=== PATIENT | female | born 1930 | race Hispanic/Latino ===

== ENCOUNTER 2016-12-04 14:45 | Emergency (ER) | payer MEDICARE ==
--- NOTE | 2016-12-04 16:19 | RAD ---
RIGHT SHOULDER THREE VIEWS: 12/04/16 HISTORY: Right shoulder pain, fall. FINDINGS/IMPRESSION: Degenerative changes are present in the acromioclavicular joint. No evidence of fracture or dislocat ion is identified. POS: [facility]
--- NOTE | 2016-12-04 16:20 | RAD ---
RIGHT HIP TWO VIEWS: 12/04/16 HISTORY: Injury, right hip pain. FINDINGS/IMPRESSION: Degenerative changes are present in the right hip joint. No fracture or dislocation is identified. POS: [facility]
[2016-12-04] MEDS ORDERED: Ketorolac Tromethamine 30 MG/ML VIAL ONE (16:38)
== END 2016-12-04 17:01 | disposition home or self-care (01) ==
LOC: ERS 14:45
DX: S40.011A Contusion of right shoulder, initial encounter (principal); S70.01XA Contusion of right hip, initial encounter; I10 Essential (primary) hypertension; W18.30XA Fall on same level, unspecified, initial encounter
CPT/HCPCS: 96372; J1885

== ENCOUNTER 2017-10-02 21:14 | Emergency (ER) | payer MEDICARE, MEDICAID ==
[2017-10-02] MEDS ORDERED: Lorazepam 1 MG TAB ONE (21:46)
== END 2017-10-02 21:51 | disposition home or self-care (01) ==
LOC: ERS 21:14
DX: F41.9 Anxiety disorder, unspecified (principal); Z76.0 Encounter for issue of repeat prescription; I10 Essential (primary) hypertension
CPT/HCPCS: 99283

== ENCOUNTER 2018-05-21 16:03 | Inpatient (IN) | payer MEDICARE, MEDICAID ==
[~2018-05-21 16:03] MED LIST: ISOVUE-370 76%-LOCM 1 ML ONE
[2018-05-21] MEDS ORDERED: Nitroglycerin 2% Ointment 1 INCH/1 GM Packet ONE (16:32)
[2018-05-21] MEDS ORDERED: Furosemide 40 MG/4 ML VIAL ONE (16:32)
[2018-05-21] MEDS ORDERED: Aspirin Chewable 81 MG TAB ONE (16:32)
[2018-05-21 16:34] LABS: #Eosinphils 0.2 thou/uL (0.0-0.7); #Monocytes 0.5 thou/uL (0.11-0.59); #Neutrophils 4.3 thou/uL (1.40-6.50); %Basophils 0.3 % (0.0-1.0); %Eosinophils 3.7 % (0.0-10.0); %Lymphocytes 16.9 % (21.0-51.0); %Monocytes 7.9 % (0.0-10.0); %Neutrophils 71.2 % (42.0-75.0); Hemoglobin 13.8 g/dL (12.0-16.0); Mean Corpuscular Hemoglobin 29.3 pg (27.0-31.0); Mean Corpuscular Volume 88.9 fL (78.0-98.0); Mean Platelet Volume 9.2 fL (7.4-10.4); Platelet Count 167 thou/uL (130-400); Red Blood Cell (RBC) Count 4.72 mill/uL (4.20-5.40)
[2018-05-21 16:50] LABS: ALT (SGPT) 23 U/L (8-55); AST (SGOT) 22 U/L (5-34); Albumin 4.2 g/dL (3.4-4.8); Alkaline Phosphatase 120 U/L (40-150); Anion Gap 12 mmol/L (10-20); BUN (Urea Nitrogen) 12 mg/dL (9.8-20.1); Bilirubin, Total 0.8 mg/dL (0.2-1.2); CK (CPK) 46 U/L (29-168); Calc. Creatinine Clearance 0 mL/min (70-130); Calcium 9.2 mg/dL (7.8-10.44); Carbon Dioxide 25 mmol/L (23-31); Chloride 96 mmol/L (98-107); Estimated GFR-MDRD 68; Globulin 3.2 g/dL (2.4-3.5); Glucose 98 mg/dL (83-110); Lipase 51 U/L (8-78); Potassium 3.9 mmol/L (3.5-5.1); Protein, Total 7.4 g/dL (6.0-8.3); Sodium 129 mmol/L (136-145)
--- NOTE | 2018-05-21 16:53 | RAD ---
PORTABLE UPRIGHT FRONTAL CHEST RADIOGRAPH: 05/21/2018 HISTORY: Cough. Shortness of breath. COMPARISON: Prior study also done on 05/21/2018. FINDINGS: The cardiac silhouette appears enlarged, suggesting cardiomegaly and/or magnification. There is athe rosclerotic calcification of the aortic arch and mild pulmonary vascular congestion. No focal consol idation or alveolar edema. IMPRESSION: No significant interval change. POS: [facility]
--- NOTE | 2018-05-21 17:52 | CT ---
CT ANGIOGRAM CHEST: 05/21/2018 HISTORY: Wheezing. Elevated D-dimer. Assess for pulmonary artery embolism. COMPARISON: None. TECHNIQUE: Axial CT imaging at 2.5 mm intervals through the chest with IV contrast, using CT angiogram protocol. Coronal and oblique sagittal 3D reformatted imaging obtained. FINDINGS: The thyroid gland appears heterogeneous and enlarged, particularly the right lobe. No axillary lymph adenopathy is seen. No significant hilar or mediastinal adenopathy noted. The partially visualized left kidney is markedly atrophic. There is contrast media refluxing into th e intrahepatic IVC and hepatic veins, evidence of suboptimal cardiac output. 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 There is s mall volume right pleural effusion. No significant pericardial, mediastinal, or left pleural fluid. There is no pulmonary arterial filling defect noted on either side. No evidence for pulmonary arteri al embolism. There is a small hiatal hernia. The heart is enlarged. There is calcification of the coronary arteries and at the level of the giorgio l annulus. There is no pneumothorax on either side. Evaluation of the lung parenchyma is slightly limited, on t he basis of respiratory motion artifact. Nonspecific, noncalcified posterior left upper lobe pulmona ry nodule on image 46 measures 8 mm. Review of the osseous structures demonstrates multilevel disk space narrowing, degenerative endplate change, and vacuum disk formation within the thoracic spine. IMPRESSION: 1. No evidence for pulmonary artery embolism. 2. Cardiomegaly with reflux of contrast media into the hepatic veins and inferior vena cava. 3. Pulmonary nodule, measuring 8 mm, within the left upper lobe, for which a follow-up CT examinatio n of the chest is advised, in six months. 4. Small right pleural effusion. POS: [facility]
[2018-05-21] MEDS ORDERED: Ondansetron ODT 4 MG TAB SL PRN (19:02)
[2018-05-21] MEDS ORDERED: Ondansetron PF 4 MG/2 ML Vial IVP PRN (19:02)
[2018-05-21 19:20] VITALS: BMI 34.6
--- NOTE | 2018-05-21 19:41 | HP ---
PRIMARY CARE PROVIDER: Dr. Jiménez. CHIEF COMPLAINT: Feeling weak. HISTORY OF PRESENT ILLNESS: Ms. Jurado is an 87-year-old female with history of hypertension, dyslipidemia, chronic hyponatremia, anxiety, who presents to the emergency room with a complaint of weakness. The majority of the history is obtained from her daughter. The patient generally has an attendant with her during the day and at night, who called her daughter today due to concern on the patient's breathing. The patient reports that she has been taking some cough medicines, but did not notice a change in her breathing, states that she has had a stuffy nose today. She has noted that she feels tired more often. She is unable to quantify when it started or how severe it is. She denies any cough, fevers, chills, nausea, vomiting, ear problems, or difficulty with sleeping flat at night. Because of the wheezing that her daughter could hear, the [facility] was [facility], where a chest x-ray was performed and the patient was sent to the emergency room. Her daughter reports the patient is generally active and does errands/grocery shopping/eating out on a regular basis with her sister. For the past few weeks the patient has declined and instead preferred to stay and home and eat at home. No precipitating or relieving factors. No prior history of similar symptoms. The patient states that she is generally well. In the emergency room, the patient's presentation concerning for new onset heart failure, possible atrial fibrillation, and hospitalist called for admission. The patient received 40 mg of IV furosemide, 1 inch of nitroglycerin paste. ALLERGIES: NO KNOWN ALLERGIES TO MEDICATION. CURRENT MEDICATIONS: Reconciled with the ER list - patient's daughter reports she reviewed this with the ER provider. 1. Metoprolol succinate 100 mg once a day. 2. Losartan 100 mg once a day. 3. Amlodipine 10 mg once a day. 4. Simvastatin 20 mg once a day. 5. Lorazepam 1 mg b.i.d. p.r.n. feeling nervous. The patient reports she takes it once or twice a day. PAST MEDICAL HISTORY: 1. Dyslipidemia. 2. Chronic hyponatremia by chart review. 3. Hypertension. 4. Anxiety. PAST SURGICAL HISTORY: 1. Cholecystectomy. 2. Hysterectomy. SOCIAL HISTORY: She lives alone and has an attendant for nighttime and sometimes during the day. She has 6 children. She denies any alcohol or tobacco. Her 2 years ago. Her surrogate decision makers are her daughter , Anabell, phone #[phone] or her son, Ran. The patient desires full code. FAMILY HISTORY: She denies any inherited disorders. REVIEW OF SYSTEMS: As noted above. Negative for cough, fevers, chills, nausea, vomiting, abdominal pain, diarrhea, or skin changes. All remaining review of systems are reviewed and negative. PHYSICAL EXAMINATION: VITAL SIGNS: Blood pressure 165/78, pulse 66 with a range of 65 to 76 here, respirations 16, sats 98% on room air. GENERAL: Awake, alert, responsive, in no apparent distress. Able to speak in regular sentences. HEENT: Her right external auditory canal occluded with cerumen. Left is clear with a normal TM. Oral mucosa is pink and moist. NECK: Supple, nontender. LYMPHATICS: No palpable cervical or supraclavicular lymphadenopathy. LUNGS: Some faint rales at the left base. No audible wheezing or rhonchi. HEART: Normal S1, S2. Regular rate and rhythm. No audible murmurs. ABDOMEN: Soft. Present bowel sounds. Nontender, nondistended. EXTREMITIES: Present 1 to 2+ pitting edema bilateral with hyperpigmentation of her lower extremities in the areas of edema. VASCULAR: 2+ dorsalis pedis pulses. SKIN: Only hyperpigmentation of her lower extremities distal to the knee. No visible rashes. NEUROLOGIC: No focal deficits. PSYCHIATRIC: Euthymic. Linear, logical, goal directed thought process. LABORATORY DATA: Labs reviewed today. CBC; 6.0, 13.8, 41.9, 167. Coags; D-dimer 1.62. Chemistry; 129, 3.9, 96, 25, 12, 0.8, 98. LFTs negative. BNP 410. Troponin negative x1. TSH 4.24. Chest x-rays personally reviewed. Cardiomegaly, mild pulmonary vascular congestion. No focal consolidation or alveolar edema. CT angiogram shows no evidence for PE, cardiomegaly with reflux of contrast into the hepatic veins and inferior vena cava, pulmonary nodule measuring [address] recommended in 6 months and small right pleural effusion. EKG; personally reviewed. Normal axis, normal intervals, atrial fibrillation with a rate of 59. IMPRESSION: 1. New onset heart failure in a patient with known hypertension. 2. Atrial fibrillation with slow ventricular response in a patient on chronic beta-renetta therapy. 3. Hypertension, unknown control. 4. Dyslipidemia. 5. Anxiety. 6. Pulmonary nodule, which needs follow up in 6 months. 7. Chronic hyponatremia based on chart review over the past few years. 8. Chronic lower extremity edema. PLAN: 1. Admission to the hospital. 2. Hold further diuresis today as the patient is no longer symptomatic. We will order a smaller dose for tomorrow. Telemetry monitoring. Start aspirin. Continue statin. Continue the beta-renetta at her current dose with hold parameters. 3. We will continue her losartan and amlodipine. Consult Cardiology and order echocardiogram. 4. Continue p.r.n. lorazepam per her home dosing. 5. Oxygen supplementation if needed. 6. Monitor her sodium levels and fluid restriction for both new onset heart failure as well as chronic hyponatremia. 7. Further recommendations will be based on clinical course. 8. DVT prophylaxis with pneumatic compression devices. 9. GI prophylaxis not indicated. 10. Code status is full. Surrogate decision makers are her daughter and son as noted above. 11. I reviewed the plan of care with the patient and her daughter, who demonstrate understanding. No questions or further needs at the end of evaluation. 12. The patient is at high risk given age, comorbidities, and current presentation. Job ID: [id number] MTDD
[2018-05-21 20:44] LABS: Troponin I Less than 0.010 ng/mL (< 0.028)
[2018-05-21] MEDS: Simvastatin 20 MG TAB PO SCH (21:46)
[2018-05-21] MEDS: Acetaminophen 325 MG TAB PO PRN (21:48)
[2018-05-21 22:00] LABS: Troponin I Less than 0.010 ng/mL (< 0.028)
[2018-05-21] MEDS ORDERED: Nitroglycerin 2% Ointment 1 INCH/1 GM Packet TOP SCH (23:59)
[2018-05-22 04:53] LABS: Bilirubin Negative (Negative); Blood, Urine Negative (Negative); Clarity CLEAR (Clear); Glucose, Urine (Dipstick) Negative (Negative); Leukocyte Small (Negative); Nitrite Negative (Negative); Protein, Urine (Dipstick) Negative (Neg-Trace); Specific Gravity, Urine 1.013 (1.002-1.036)
[2018-05-22 04:58] LABS: Bacteria/HPF 1+ HPF (None Seen); Hyaline Casts/LPF 0-3 HYALINE CAST LPF (0-3 Hyaline); RBC/HPF 0-3 HPF (0-3); Squamous Epithelial None Seen HPF (0-3)
[2018-05-22 06:42] LABS: #Basophils 0.1 thou/uL (0.0-0.2); #Eosinphils 0.2 thou/uL (0.0-0.7); #Lymphocytes 1.2 thou/uL (1.20-3.40); #Monocytes 0.5 thou/uL (0.11-0.59); #Neutrophils 3.7 thou/uL (1.40-6.50); %Basophils 0.9 % (0.0-1.0); %Eosinophils 4.1 % (0.0-10.0); %Lymphocytes 20.2 % (21.0-51.0); %Monocytes 9.4 % (0.0-10.0); %Neutrophils 65.5 % (42.0-75.0); Hemoglobin 13.6 g/dL (12.0-16.0); Mean Corpuscular HGB CONC 32.5 g/dL (32.0-36.0); Mean Corpuscular Hemoglobin 28.6 pg (27.0-31.0); Mean Platelet Volume 9.1 fL (7.4-10.4); Platelet Count 183 thou/uL (130-400); RBC Distribution Width 12.1 % (11.5-14.5); Red Blood Cell (RBC) Count 4.75 mill/uL (4.20-5.40); White Blood Cell (WBC) Count 5.7 thou/uL (4.8-10.8)
[2018-05-22 06:56] LABS: Anion Gap 16 mmol/L (10-20); BUN (Urea Nitrogen) 13 mg/dL (9.8-20.1); Calc. Creatinine Clearance 63 mL/min (70-130); Calcium 9.4 mg/dL (7.8-10.44); Carbon Dioxide 22 mmol/L (23-31); Chloride 99 mmol/L (98-107); Estimated GFR-MDRD 65; Glucose 100 mg/dL (83-110); Potassium 3.6 mmol/L (3.5-5.1); Sodium 133 mmol/L (136-145)
[2018-05-22] MEDS: Aspirin 325 mg Enteric Coated Tablet PO SCH (08:12)
[2018-05-22] MEDS: Losartan 25 MG TAB PO SCH (08:12)
[2018-05-22] MEDS: Amlodipine 10 MG TAB PO SCH (08:12)
[2018-05-22] MEDS: Furosemide 20 MG/2 ML VIAL SLOW IVP SCH (08:13)
[2018-05-22] MEDS: Lorazepam 1 MG TAB PO PRN ×2 (08:22→21:25)
--- NOTE | 2018-05-22 09:05 | PDOC.PN ---
- Subjective Encounter Start Date: 05/22/18 Encounter Start Time: 11:10 Subjective: Patient with improved SOB. No wheezing. Less coughing. - Objective Resuscitation Status - Order Detail: 05/21/18 18:37 Resuscitation Status Routine Resuscitation Status: FULL: Full Resuscitation MAR Reviewed: Yes Vital Signs & Weight: Vital Signs (12 hours) Temp Pulse Resp BP BP Pulse Ox 05/22/18 08:12 71 173/78 H 05/22/18 08:00 98.2 F 71 18 173/78 H 94 L 05/22/18 04:25 97.9 F 68 18 163/83 H 95 Weight Weight 176 lb 9.6 oz I&O: 05/21/18 05/22/18 05/23/18 06:59 06:59 06:59 Intake Total 500 Output Total 1850 Balance -1350 Result Diagrams: 05/22/18 06:10 05/22/18 06:10 Phys Exam - Physical Examination Constitutional: NAD HEENT: moist MMs Respiratory: no wheezing, no rales, no rhonchi Cardiovascular: RRR, no significant murmur Gastrointestinal: soft, positive bowel sounds 1+ bilateral edema to shins Neurological: non-focal, moves all 4 limbs Psychiatric: normal affect, A&O x 3 Dx/Plan (1) Acute congestive heart failure Code(s): I50.9 - HEART FAILURE, UNSPECIFIED Status: Acute Qualifiers: Heart failure type: unspecified Qualified Code(s): I50.9 - Heart failure, unspecified Comment: ECHO, cardiology consult pending, on low dose diuretic and symptoms improved (2) Atrial fibrillation Code(s): I48.91 - UNSPECIFIED ATRIAL FIBRILLATION Status: Acute Comment: rate controlled on betablocker, new onset (3) Hypertension Code(s): I10 - ESSENTIAL (PRIMARY) HYPERTENSION Status: Chronic (4) Dyslipidemia Code(s): E78.5 - HYPERLIPIDEMIA, UNSPECIFIED Status: Chronic (5) Hyponatremia Code(s): E87.1 - HYPO-OSMOLALITY AND HYPONATREMIA Status: Chronic Comment: mild, chronic, stable (6) Lung nodule Code(s): R91.1 - SOLITARY PULMONARY NODULE Status: Acute Comment: left upper lobe, 8mm, needs f/u CT in 6 months (7) Anxiety Code(s): F41.9 - ANXIETY DISORDER, UNSPECIFIED Status: Chronic - Plan cont current plan of care, PT/OT, DVT proph w/lovenox, DVT proph w/SCDs * . - Discharge Encounter end time: 11:20
--- NOTE | 2018-05-22 18:57 | CON ---
DATE OF CONSULTATION: 05/22/2018 REASON FOR CONSULTATION: Heart failure. HISTORY OF PRESENT ILLNESS: Ms. Jurado is a very pleasant 87-year-old female, who comes to the hospital for feeling weak. She was brought in for a few weeks worth of not feeling that well, noted that her breathing was started to become an issue as well, so she was brought in and admitted after being evaluated and found to be in a little bit of heart failure. She was started on IV Lasix and Cardiology is being consulted for this. On my evaluation, Ms. Jurado looks much better. Her breathing pattern is significantly improved after some Lasix has already been given and she has diuresed a lot. She denies any chest pain, tightness, or pressure. Denies any palpitations, syncope, or presyncope. PAST MEDICAL HISTORY: 1. Hyperlipidemia. 2. Chronic hyponatremia. 3. Hypertension. 4. Anxiety. PAST SURGICAL HISTORY: 1. Cholecystectomy. 2. Hysterectomy. MEDICATIONS: Outpatient medications include. 1. Metoprolol succinate 100 mg a day. 2. Losartan 100 mg a day. 3. Amlodipine 10 mg a day. 4. Simvastatin 20 mg nightly. 5. Lorazepam p.r.n. ALLERGIES: NO KNOWN DRUG ALLERGIES. FAMILY HISTORY: Noncontributory. SOCIAL HISTORY: No alcohol, tobacco, or drugs. Has 6 kids. Lives alone and has an attendant with her at all times. REVIEW OF SYSTEMS: A 12-point review of systems was done and was found to be negative unless stated in the history of present illness except she fell down about 6 months ago, hit her head. PHYSICAL EXAMINATION: VITAL SIGNS: Temperature 98.9, pulse 64, respiratory rate 18, saturating 94% on room air, and blood pressure 148/73. GENERAL: Awake, alert, and oriented x3, in no distress. HEENT: Normocephalic and atraumatic. NECK: Supple. LUNGS: Mild crackles at the bases. CARDIOVASCULAR: Irregularly irregular heart rate in the 60s, grade 2/6 systolic murmur in the upper sternal border. ABDOMEN: Soft. Positive bowel sounds. EXTREMITIES: No edema. SKIN: Warm and dry. LABORATORY DATA: Laboratory work was reviewed. CBC is normal. Coags, D-dimer was a little bit high. Chemistry was unremarkable except for a sodium of 133. Troponin is negative x3. BNP is 410. UA with small leukocyte esterase, 11-20 white cells, 1+ bacteria. CT of the thorax was reviewed. She has no evidence of pulmonary embolism. There are findings suggestive of right-sided failure with pulmonary nodule, measuring 8 mm, in the left upper lobe, cardiomegaly, and a small right pleural effusion. EKG was reviewed. Echocardiogram was reviewed, which shows LV function at 50% to 55%. She was in AFib during this study and right ventricle and right atrium are severely dilated, suggestive of right-sided failure. RVSP was only at 35 by the time the echo was done. ASSESSMENT AND PLAN: 1. Acute on chronic diastolic heart failure. 2. Acute right ventricular heart failure. 3. New onset atrial fibrillation, rate controlled. 4. CHADS-VASc score of 4 for a female age above 75, that gives 2 points. 5. High blood pressure. PLAN: 1. Long conversation with the family about stroke prophylaxis with blood thinners. They are very concerned that she is at fall risk. She has fallen a few times and hitting her head really hard. Daughter tells me that at this point she thinks she is high risk for falls and she would prefer her to be on an aspirin alone. She will talk with her siblings and let me know what decision they have come to, as far as in my experiences, her falls may be significant enough at this time to just do aspirin alone for stroke prophylaxis. While she is in the hospital, we will give her subcu Lovenox as this is quickly reversible and depending on what the family decides and further conversations with them, we will decide on aspirin alone versus full anticoagulation. Currently, most likely will be aspirin alone. 2. Continue rate control with a high dose beta-renetta for now. 3. Family and patient not interested in defibrillator shocks as well as having severely dilated atria, both right and left-sided are very dilated, which would make it unlikely that she would remain in sinus rhythm if she were to be shocked. 4. Right-sided failure, may be related to atrial fibrillation. No pulmonary embolism seen on CT. Continue diuresis. Thank you for letting us to participate in the care of your patient. We will follow. Job ID: [id number]
[2018-05-22] MEDS ORDERED: Bisacodyl 10 MG SUPP PR PRN (19:59)
[2018-05-22] MEDS: Senokot S 8.6-50 MG TAB PO PRN (20:27)
[2018-05-22] MEDS: Simvastatin 20 MG TAB PO SCH (20:29)
[2018-05-22] MEDS: Enoxaparin Sodium 80 MG/0.8 ML SYRINGE SC SCH (20:30)
[2018-05-23] MEDS ORDERED: Enoxaparin Sodium 40 MG/0.4 ML SYRINGE SC SCH (09:00)
[2018-05-23] MEDS: Losartan 25 MG TAB PO SCH (09:19)
[2018-05-23] MEDS: Furosemide 20 MG/2 ML VIAL SLOW IVP SCH (09:20)
[2018-05-23] MEDS: Amlodipine 10 MG TAB PO SCH (09:20)
[2018-05-23] MEDS: Enoxaparin Sodium 80 MG/0.8 ML SYRINGE SC SCH ×2 (09:20→20:59)
[2018-05-23] MEDS: Aspirin 325 mg Enteric Coated Tablet PO SCH (09:20)
--- NOTE | 2018-05-23 09:46 | PDOC.PN ---
- Subjective Encounter Start Date: 05/23/18 Encounter Start Time: 11:30 Subjective: Patient reports some improvement in shortness of breath and cough. Still -: with some cough productive of white sputum. - Objective Resuscitation Status - Order Detail: 05/21/18 18:37 Resuscitation Status Routine Resuscitation Status: FULL: Full Resuscitation MAR Reviewed: Yes Vital Signs & Weight: Vital Signs (12 hours) Temp Pulse Resp BP Pulse Ox 05/23/18 09:20 72 05/23/18 08:00 98.5 F 72 16 179/82 H 98 05/23/18 04:00 98 F 61 14 162/79 H 95 Weight Weight 170 lb 1.6 oz I&O: 05/22/18 05/23/18 05/24/18 06:59 06:59 06:59 Intake Total 500 960 Output Total 1850 1000 Balance -1350 -40 Result Diagrams: 05/22/18 06:10 05/22/18 06:10 Phys Exam - Physical Examination Constitutional: NAD HEENT: moist MMs Respiratory: no rales, no rhonchi occ wheeze Cardiovascular: no significant murmur, irregular Gastrointestinal: soft, positive bowel sounds trace pretibial edema Neurological: non-focal Psychiatric: normal affect, A&O x 3 Dx/Plan (1) Acute congestive heart failure Code(s): I50.9 - HEART FAILURE, UNSPECIFIED Status: Acute Qualifiers: Heart failure type: diastolic Qualified Code(s): I50.31 - Acute diastolic ( congestive) heart failure Comment: ECHO EF 50-55%, right sided heart failure, on low dose diuretic and symptoms improved (2) Atrial fibrillation Code(s): I48.91 - UNSPECIFIED ATRIAL FIBRILLATION Status: Acute Comment: rate controlled on betablocker, new onset, plan for Aspirin only due to falls (3) Hypertension Code(s): I10 - ESSENTIAL (PRIMARY) HYPERTENSION Status: Chronic (4) Dyslipidemia Code(s): E78.5 - HYPERLIPIDEMIA, UNSPECIFIED Status: Chronic (5) Hyponatremia Code(s): E87.1 - HYPO-OSMOLALITY AND HYPONATREMIA Status: Chronic Comment: mild, chronic, stable (6) Lung nodule Code(s): R91.1 - SOLITARY PULMONARY NODULE Status: Acute Comment: left upper lobe, 8mm, needs f/u CT in 6 months (7) Anxiety Code(s): F41.9 - ANXIETY DISORDER, UNSPECIFIED Status: Chronic - Plan cont current plan of care, PT/OT, DVT proph w/lovenox, DVT proph w/SCDs Appreciate Dr. Sinha's imput on this case. * . - Discharge Day Encounter end time: 11:40
[2018-05-23] MEDS: Furosemide 40 MG/4 ML VIAL SLOW IVP SCH (14:23)
[2018-05-23] MEDS: Acetaminophen 325 MG TAB PO PRN ×2 (14:34→23:21)
[2018-05-23] MEDS: Lorazepam 1 MG TAB PO PRN (18:39)
--- NOTE | 2018-05-23 19:38 | PDOC.CTH ---
Cardiology Progress Note - Subjective She is doing much better. Has diuresed better with 40 IV lasix. She feels back to normal. - Objective Vital Signs Temp Pulse Pulse Pulse Resp BP BP 05/23/18 16:00 99.0 F 56 L 16 05/23/18 12:00 98.6 F 70 18 05/23/18 10:29 79 81 171/81 H 177/81 H 05/23/18 09:20 72 05/23/18 08:00 98.5 F 72 16 BP BP BP Pulse Ox Pulse Ox Pulse Ox 05/23/18 16:00 130/68 94 L 05/23/18 12:00 141/70 H 94 L 05/23/18 10:29 98 98 05/23/18 09:20 05/23/18 08:00 179/82 H 98 Weight 170 lb 1.6 oz 05/22/18 05/23/18 05/24/18 06:59 06:59 06:59 Intake Total 500 960 240 Output Total 1850 1000 Balance -1350 -40 240 - Physical Examination General/Neuro: alert & oriented x3, NAD Neck: no JVD present Lungs: CTA, unlabored respirations Heart: RRR Abdomen: NT/ND Extremities: + edema B (1+) - Telemetry Telemetry Rhythm: Afib HR 60's. - Labs Result Diagrams: 05/22/18 06:10 05/22/18 06:10 Troponin/CKMB Troponin I Less than 0.010 ng/mL (< 0.028) 05/21/18 21:17 - Assessment/Plan 1. New onset afob, rate controlled. 2. Bi atrial enlargement. 3. Acute on chronic diastolic heart failure. 4. CHADS VASc score of 4 5. High fall risk PLAN: - Family is concerned about her fall risk. Aspirin for stroke prophylaxis preferred. - Continue IV Lasix today and tomorrow. - Likely home in next 24 to 48 hrs. - Continue rate control only with current dose of BB.
[2018-05-23] MEDS: Simvastatin 20 MG TAB PO SCH (20:59)
[2018-05-24 05:43] LABS: #Eosinphils 0.2 thou/uL (0.0-0.7); #Lymphocytes 1.9 thou/uL (1.20-3.40); #Monocytes 0.6 thou/uL (0.11-0.59); #Neutrophils 3.3 thou/uL (1.40-6.50); %Basophils 0.7 % (0.0-1.0); %Eosinophils 3.3 % (0.0-10.0); %Lymphocytes 31.1 % (21.0-51.0); %Monocytes 9.7 % (0.0-10.0); %Neutrophils 55.2 % (42.0-75.0); Hemoglobin 14.6 g/dL (12.0-16.0); Mean Corpuscular HGB CONC 32.7 g/dL (32.0-36.0); Mean Corpuscular Hemoglobin 28.8 pg (27.0-31.0); Mean Corpuscular Volume 88.1 fL (78.0-98.0); Mean Platelet Volume 8.6 fL (7.4-10.4); Platelet Count 197 thou/uL (130-400); RBC Distribution Width 11.9 % (11.5-14.5); Red Blood Cell (RBC) Count 5.07 mill/uL (4.20-5.40)
[2018-05-24 06:01] LABS: Anion Gap 13 mmol/L (10-20); BUN (Urea Nitrogen) 16 mg/dL (9.8-20.1); Calc. Creatinine Clearance 53 mL/min (70-130); Calcium 9.3 mg/dL (7.8-10.44); Carbon Dioxide 28 mmol/L (23-31); Chloride 97 mmol/L (98-107); Estimated GFR-MDRD 57; Glucose 95 mg/dL (83-110); Potassium 3.1 mmol/L (3.5-5.1); Sodium 135 mmol/L (136-145)
[2018-05-24] MEDS: Furosemide 40 MG/4 ML VIAL SLOW IVP SCH ×2 (06:05→13:43)
--- NOTE | 2018-05-24 09:18 | PDOC.PN ---
- Subjective Encounter Start Date: 05/24/18 Encounter Start Time: 11:20 Subjective: Patient feeling much better. Had some hard stool today and felt constipated -: this AM, got laxative but no BM yet. - Objective Resuscitation Status - Order Detail: 05/21/18 18:37 Resuscitation Status Routine Resuscitation Status: FULL: Full Resuscitation MAR Reviewed: Yes Vital Signs & Weight: Vital Signs (12 hours) Temp Pulse Resp BP BP Pulse Ox 05/24/18 07:12 97.5 F L 74 16 162/81 H 100 05/24/18 04:00 98.1 F 65 16 135/72 94 L Weight Weight 175 lb 12.8 oz I&O: 05/23/18 05/24/18 05/25/18 06:59 06:59 06:59 Intake Total 960 240 100 Output Total 1000 300 Balance -40 240 -200 Result Diagrams: 05/24/18 05:17 05/24/18 05:17 Phys Exam - Physical Examination Constitutional: NAD HEENT: moist MMs Respiratory: no wheezing, no rales, no rhonchi Cardiovascular: RRR, no significant murmur Gastrointestinal: soft, non-tender, positive bowel sounds Musculoskeletal: no edema Neurological: non-focal, moves all 4 limbs Psychiatric: normal affect, A&O x 3 Dx/Plan (1) Acute congestive heart failure Code(s): I50.9 - HEART FAILURE, UNSPECIFIED Status: Acute Qualifiers: Heart failure type: diastolic Qualified Code(s): I50.31 - Acute diastolic ( congestive) heart failure Comment: ECHO EF 50-55%, right sided heart failure, on low dose diuretic and symptoms improved (2) Atrial fibrillation Code(s): I48.91 - UNSPECIFIED ATRIAL FIBRILLATION Status: Acute Comment: rate controlled on betablocker, new onset, plan for Aspirin only due to falls (3) Hypertension Code(s): I10 - ESSENTIAL (PRIMARY) HYPERTENSION Status: Chronic (4) Dyslipidemia Code(s): E78.5 - HYPERLIPIDEMIA, UNSPECIFIED Status: Chronic (5) Hyponatremia Code(s): E87.1 - HYPO-OSMOLALITY AND HYPONATREMIA Status: Chronic Comment: mild, chronic, stable (6) Lung nodule Code(s): R91.1 - SOLITARY PULMONARY NODULE Status: Acute Comment: left upper lobe, 8mm, needs f/u CT in 6 months (7) Anxiety Code(s): F41.9 - ANXIETY DISORDER, UNSPECIFIED Status: Chronic (8) Constipation Code(s): K59.00 - CONSTIPATION, UNSPECIFIED Status: Acute Comment: add scheduled colace, prn laxative - Plan cont current plan of care, PT/OT likely home tomorrow if ok with cardiology * . - Discharge Day Encounter end time: 11:30
[2018-05-24] MEDS: Aspirin 325 mg Enteric Coated Tablet PO SCH (09:20)
[2018-05-24] MEDS: Losartan 25 MG TAB PO SCH (09:20)
[2018-05-24] MEDS: Enoxaparin Sodium 80 MG/0.8 ML SYRINGE SC SCH ×2 (09:20→20:31)
[2018-05-24] MEDS: Amlodipine 10 MG TAB PO SCH (09:20)
--- NOTE | 2018-05-24 12:47 | PQF ---
CLINICAL DOCUMENTATION IMPROVEMENT CLARIFICATION FORM: ICD-10 Updated PLEASE DO AN ADDENDUM TO THE PROGRESS NOTE WITH ANY DOCUMENTATION UPDATES OR ADDITIONS AND CARRY THROUGH TO DC SUMMARY. THANK YOU. DATE: 05/24/2018 ATTN: Dr. Salinas Please exercise your independent, professional judgment in responding to the clarification form. Clinical indicators are provided on the bottom of this form for your review Please check appropriate box(s): Conflicting documentation was noted in the Medical Record, please clarify if patient is being treated/monitored for: [ ] Acute diastolic congestive heart failure [ X ] Acute on chronic diastolic heart failure [ ] Other diagnosis [ ] Unable to determine In addition, please specify: Present on Admission (POA): [ X ] Yes [ ] No [ ] Unable to determine For continuity of documentation, please document condition throughout progress notes and discharge summary. Thank You. CLINICAL INDICATORS - SIGNS / SYMPTOMS/ LABS PN 05/23-05/24: Acute diastolic congestive heart failure ECHO EF 50-55%, r sided heart failure, on low dose diuretic & symptoms improved PN 05/22-05/23 (Ernestine): Acute on chronic diastolic heart failure RISKS: H&P 05/21: New onset heart failure in a patient with known hypertension. Atrial fibrillation with slow ventricular response. Chronic hyponatremia. Chronic LE edema. TREATMENT: Order 05/21-05/23: Lasix 20 mg IV daily. Order 05/23: Lasix 40 mg IV 0600, 1400 Thank you, Deborah (This form is maintained as a part of the permanent medical record) 2014 [employer] All Rights Reserved Deborah Harris RN, BSN [email or web address] Office: [phone] [facility]
--- NOTE | 2018-05-24 18:53 | PDOC.CTH ---
Cardiology Progress Note - Subjective She feels constipated. Breathing back to baseline. - Objective Vital Signs Temp Pulse Pulse Pulse Resp BP BP 05/24/18 15:46 98.3 F 71 18 05/24/18 11:55 98.2 F 70 16 05/24/18 11:25 67 65 183/79 H 147/70 H 05/24/18 07:12 97.5 F L 74 16 BP BP Pulse Ox Pulse Ox Pulse Ox 05/24/18 15:46 124/66 99 05/24/18 11:55 135/64 95 05/24/18 11:25 97 95 05/24/18 07:12 162/81 H 100 Weight 175 lb 12.8 oz 05/23/18 05/24/18 05/25/18 06:59 06:59 06:59 Intake Total 960 240 100 Output Total 1000 300 Balance -40 240 -200 - Physical Examination General/Neuro: alert & oriented x3, NAD Neck: no JVD present Lungs: unlabored respirations Heart: other: (Irreg irreg) Abdomen: NT/ND Extremities: other: (no edema) - Telemetry Telemetry Rhythm: Afib HR 70's. - Labs Result Diagrams: 05/24/18 05:17 05/24/18 05:17 Troponin/CKMB Troponin I Less than 0.010 ng/mL (< 0.028) 05/21/18 21:17 - Assessment/Plan 1. New onset afob, rate controlled. 2. Bi atrial enlargement. 3. Acute on chronic diastolic heart failure. 4. CHADS VASc score of 4 5. High fall risk PLAN: - Aspirin for stroke prophylaxis due to fall risk. - Switch to PO lasix. . - May D/C anytime from cardiac perspective. - Continue rate control only with current dose of BB. - Will sign off. please call with any questions. Follow up in the office in 3 months.
[2018-05-24] MEDS: Docusate 100 MG CAP PO SCH (20:32)
[2018-05-24] MEDS: Simvastatin 20 MG TAB PO SCH (20:32)
[2018-05-24] MEDS: Lorazepam 1 MG TAB PO PRN (20:32)
[2018-05-25] MEDS: Furosemide 40 MG/4 ML VIAL SLOW IVP SCH (05:45)
[2018-05-25] MEDS: Amlodipine 10 MG TAB PO SCH (09:17)
[2018-05-25] MEDS: Aspirin 325 mg Enteric Coated Tablet PO SCH (09:17)
[2018-05-25] MEDS: Enoxaparin Sodium 80 MG/0.8 ML SYRINGE SC SCH (09:18)
[2018-05-25] MEDS: Docusate 100 MG CAP PO SCH (09:18)
[2018-05-25] MEDS: Losartan 25 MG TAB PO SCH (09:18)
[2018-05-25] MEDS: Lorazepam 1 MG TAB PO PRN (09:19)
[2018-05-25] MEDS: Senokot S 8.6-50 MG TAB PO PRN (09:19)
--- NOTE | 2018-05-25 09:39 | PDOC.PN ---
- Subjective Encounter Start Date: 05/25/18 Encounter Start Time: 11:20 Subjective: Patient feeling much better, ambulating well in the hallways. Had a good -: bowel movement with laxatives yesterday. - Objective Resuscitation Status - Order Detail: 05/21/18 18:37 Resuscitation Status Routine Resuscitation Status: FULL: Full Resuscitation MAR Reviewed: Yes Vital Signs & Weight: Vital Signs (12 hours) Temp Pulse Resp BP BP BP Pulse Ox 05/25/18 09:17 73 142/67 H 05/25/18 08:00 98.1 F 73 14 142/67 H 95 05/25/18 04:00 98.7 F 82 16 146/84 H 95 Weight Weight 171 lb 12.8 oz I&O: 05/24/18 05/25/18 05/26/18 06:59 06:59 06:59 Intake Total 240 1260 Output Total 650 Balance 240 610 Result Diagrams: 05/24/18 05:17 05/24/18 05:17 Phys Exam - Physical Examination Constitutional: NAD HEENT: moist MMs Respiratory: no wheezing, no rales, no rhonchi Cardiovascular: no significant murmur, irregular Gastrointestinal: soft, positive bowel sounds trace edema to lower extremities Neurological: non-focal, moves all 4 limbs Psychiatric: normal affect, A&O x 3 Dx/Plan (1) Acute congestive heart failure Code(s): I50.9 - HEART FAILURE, UNSPECIFIED Status: Acute Qualifiers: Heart failure type: diastolic Qualified Code(s): I50.31 - Acute diastolic ( congestive) heart failure Comment: ECHO EF 50-55%, right sided heart failure, on low dose diuretic and symptoms improved (2) Atrial fibrillation Code(s): I48.91 - UNSPECIFIED ATRIAL FIBRILLATION Status: Acute Comment: rate controlled on betablocker, new onset, plan for Aspirin only due to falls (3) Hypertension Code(s): I10 - ESSENTIAL (PRIMARY) HYPERTENSION Status: Chronic (4) Dyslipidemia Code(s): E78.5 - HYPERLIPIDEMIA, UNSPECIFIED Status: Chronic (5) Hyponatremia Code(s): E87.1 - HYPO-OSMOLALITY AND HYPONATREMIA Status: Chronic Comment: mild, chronic, stable (6) Lung nodule Code(s): R91.1 - SOLITARY PULMONARY NODULE Status: Acute Comment: left upper lobe, 8mm, needs f/u CT in 6 months (7) Anxiety Code(s): F41.9 - ANXIETY DISORDER, UNSPECIFIED Status: Chronic (8) Constipation Code(s): K59.00 - CONSTIPATION, UNSPECIFIED Status: Acute Comment: add scheduled colace, prn laxative - Plan cont current plan of care d/c home -: f/u cardiology in 1 month * . - Discharge Day Encounter end time: 11:30
[2018-05-25] MEDS ORDERED: Potassium Chloride 20 MEQ TAB PO SCH (09:45)
[2018-05-25 13:05] VITALS: TEMP 97.3
[2018-05-25 13:55] VITALS: BP 171/76
[2018-05-25] MEDS: Acetaminophen 325 MG TAB PO PRN (16:10)
--- NOTE | 2018-05-26 04:37 | DIS ---
DATE OF ADMISSION: 05/21/2018 DATE OF DISCHARGE: 05/25/2018 PRIMARY CARE PHYSICIAN: Buddy, Dr. Jiménez. REASON FOR ADMISSION: New onset atrial fibrillation with congestive heart failure exacerbation. DIAGNOSES AT DISCHARGE: 1. Acute on chronic diastolic congestive heart failure. 2. New onset atrial fibrillation, rate controlled, on aspirin for prophylaxis. 3. Hypertension. 4. Dyslipidemia. 5. Hyponatremia. 6. Lung nodule. 7. Anxiety. 8. Constipation. PROCEDURES: 1. CT of the chest and thorax with contrast showing no evidence for pulmonary embolism, but some cardiomegaly with reflux of contrast media into the hepatic vein, also with a pulmonary nodule 8 mm in the left upper lobe with a recommendation of repeat CT in 6 months. 2. Echocardiogram showing ejection fraction of 50% to 55%, dilated right ventricle and reduced right ventricular systolic function, severely dilated left atrium, markedly dilated right atrium and right ventricular systolic pressure elevated at 35 mmHg. CONSULTATIONS: Cardiology, Dr. Sinha. SUMMARY OF HOSPITAL COURSE: This is an 87-year-old female with a history of hypertension, dyslipidemia, chronic hyponatremia, and anxiety, who presented with complaints of weakness, feeling more tired, some shortness of breath, some wheezing, so the patient came into the emergency room. She was found to be in atrial fibrillation, which is a new diagnosis, but with a controlled rate and had pulmonary vascular congestion on her chest x-ray and elevated brain natriuretic peptide. The patient was given Lasix in the emergency room with improvement in her breathing and she was admitted to the hospital with diuresis during hospitalization. She had an echocardiogram with above results, and Dr. Sinha was consulted for Cardiology. He did discuss with her options for treatment of atrial fibrillation, including trying to do an ablation, though her severely dilated atrium make it very likely that it would just come back. I also talked to her about doing chronic anticoagulation for prevention of strokes, however, the patient and family were concerned that she does have somewhat frequent falls and so they elected for just a daily aspirin for stroke prevention. The patient did well during her hospitalization. She did have some constipation which is relieved with laxatives. She was able to ambulate in the hallways on the day of discharge and was not requiring any oxygen and is being discharged home under the care of her family. DISCHARGE MANAGEMENT: Location: Discharged home. Activity: As tolerated. Diet: Fluid restricted, healthy heart low-sodium diet. Followup: Follow up with [facility] physicians, for a new patient visit on June 01, 2018 at 10 a.m. She will need to get the CT scan scheduled for 6 months to follow up on the lung nodule. DISCHARGE MEDICATIONS: 1. Aspirin 325 mg daily, 30 tablets dispensed. 2. Furosemide 20 mg daily, 30 tablets dispensed. 3. Continue amlodipine 5 mg daily. 4. Lorazepam 1 mg twice a day as needed. 5. Losartan 100 mg daily. 6. Metoprolol succinate 100 mg daily. 7. Simvastatin 20 mg daily. Arranging the details of this discharge took 32 minutes. Job ID: [id number] MTDD
[2018-05-26] MEDS ORDERED: Furosemide 20 MG TAB PO SCH (09:00)
== END 2018-05-25 16:32 | disposition home or self-care (01) | DRG 292 ==
LOC: ERS 16:03 → 2NO 17:56
PROVIDERS: ADMIT Internal Medicine; ATTEND Internal Medicine
DX: I11.0 Hypertensive heart disease with heart failure (principal); E87.1 Hypo-osmolality and hyponatremia; I50.33 Acute on chronic diastolic (congestive) heart failure; K59.00 Constipation, unspecified; F41.9 Anxiety disorder, unspecified; E78.00 Pure hypercholesterolemia, unspecified; I48.91 Unspecified atrial fibrillation; R91.1 Solitary pulmonary nodule; Z79.899 Other long term (current) drug therapy; Z90.49 Acquired absence of other specified parts of digestive tract; Z90.710 Acquired absence of both cervix and uterus
CPT/HCPCS: 36415; 71045; 71275; 80048; 80053; 81003; 81015; 82550; 83690; 83880; 84443; 84484; 85025; 85379; 93005; 93306; 93798; 96374; J1650; J1940; Q9966

== ENCOUNTER 2018-07-25 13:13 | Inpatient (IN) | payer MEDICARE, MEDICAID ==
[2018-07-25 13:39] LABS: #Lymphocytes 1.7 thou/uL (1.20-3.40); #Monocytes 0.5 thou/uL (0.11-0.59); #Neutrophils 8.8 thou/uL (1.40-6.50); %Eosinophils 0.4 % (0.0-10.0); %Lymphocytes 15.5 % (21.0-51.0); %Monocytes 4.3 % (0.0-10.0); %Neutrophils 79.8 % (42.0-75.0); Hemoglobin 11.4 g/dL (12.0-16.0); Mean Corpuscular HGB CONC 33.8 g/dL (32.0-36.0); Mean Corpuscular Hemoglobin 29.8 pg (27.0-31.0); Mean Corpuscular Volume 88.4 fL (78.0-98.0); Mean Platelet Volume 10.2 fL (7.4-10.4); Platelet Count 217 thou/uL (130-400); RBC Distribution Width 12.3 % (11.5-14.5); Red Blood Cell (RBC) Count 3.82 mill/uL (4.20-5.40)
[2018-07-25 14:01] LABS: ALT (SGPT) 15 U/L (8-55); AST (SGOT) 17 U/L (5-34); Albumin 3.7 g/dL (3.4-4.8); Alkaline Phosphatase 55 U/L (40-150); Anion Gap 20 mmol/L (10-20); Bilirubin, Total 0.6 mg/dL (0.2-1.2); Calc. Creatinine Clearance 0 mL/min (70-130); Calcium 9.5 mg/dL (7.8-10.44); Carbon Dioxide 14 mmol/L (23-31); Chloride 99 mmol/L (98-107); Estimated GFR-MDRD 32; Globulin 2.2 g/dL (2.4-3.5); Glucose 166 mg/dL (83-110); Potassium 4.3 mmol/L (3.5-5.1); Protein, Total 5.9 g/dL (6.0-8.3); Sodium 129 mmol/L (136-145)
--- NOTE | 2018-07-25 14:02 | RAD ---
Portable frontal chest radiograph: 07/25/2018 COMPARISON: 05/21/2018 HISTORY: Shortness of breath, weakness FINDINGS: Lungs are clear. There is atherosclerotic calcification of the thoracic aorta. Mitral annul us calcification noted. IMPRESSION: No acute findings.
[2018-07-25 14:12] LABS: BUN (Urea Nitrogen) 124 mg/dL (9.8-20.1)
[2018-07-25 14:24] LABS: CKMB 3.6 ng/mL (0-6.6)
--- NOTE | 2018-07-25 14:54 | CT ---
CT BRAIN WITHOUT CONTRAST: HISTORY:Syncope COMPARISON:08/27/2011 FINDINGS: There are foci of decreased attenuation in the periventricular white matter, consistent with chronic small vessel ischemic disease. No evidence of acute infarct, hemorrhage, midline shift or abnormal extra-axial fluid collections is seen. The ventricular size is appropriate and the basilar cisterns are patent. The bony calvarium is intact. The mastoid air cells are well aerated. There is mucosal disease in the paranasal sinuses. IMPRESSION: No CT evidence of acute intracranial process.
[2018-07-25] MEDS ORDERED: Ondansetron ODT 4 MG TAB PO PRN (15:31)
[2018-07-25] MEDS ORDERED: Acetaminophen 325 MG TAB PO PRN (15:31)
--- NOTE | 2018-07-25 16:25 | HP ---
PRIMARY CARE PROVIDER: Audrey Jiménez MD HISTORY: Referred to [facility] by [facility]. The patient was found down by her family today. They suspected she had been down at least an hour. She can remember her name and date, but that is about it. She lives close to family. She is unable to give any history. After long discussion with family, I discovered that she had a black foul-smelling stool in the past 12 hours. PAST MEDICAL HISTORY: Pertinent for new onset of atrial fibrillation 2 months ago, new onset of diastolic heart failure. She has dementia, hypertension, dyslipidemia, and pulmonary nodule. CURRENT MEDICATIONS: 1. Clonazepam 0.5 mg once a day as needed. 2. Losartan 100 mg a day. 3. Metoprolol 100 mg a day. 4. Zocor 20 mg a day. 5. Amlodipine 5 mg a day. 6. Lasix 20 mg a day. 7. Aspirin 325 mg a day. ALLERGIES: NONE. PAST SURGICAL HISTORY: Cholecystectomy, hysterectomy. SOCIAL HISTORY: Lives alone, has an attendant at night. Has 6 children, live close, they check on her frequently. She is . Her family agreed that she is DNR. Decision makers are multiple at the DNR from the family is a group, [facility]. She has no tobacco or alcohol. FAMILY HISTORY: No inherited diseases. REVIEW OF SYSTEMS: Really unobtainable as the patient is unable to answer questions lucidly and the family is unaware of any recent problems. PHYSICAL EXAMINATION: VITAL SIGNS: Her blood pressure is 87/50, pulses in the low 80s, respirations 22, and temperature 97.7. HEAD, EYES, EARS, NOSE, AND THROAT: Reveal pupils round with arcus. Extraocular movements intact. Sclerae are white. Tympanic membranes clear. Nose is clear. Oral mucous membranes are dry. NECK: No jugular venous distention, adenopathy, or thyromegaly. CHEST: Clear to auscultation and percussion. HEART: Irregular rate and rhythm with a faint honking systolic murmur. First and second second heart sounds are variable. ABDOMEN: Soft. Bowel sounds are normal. There is no hepatosplenomegaly. No mass. No rebound. RECTAL: Reveals black stools in a very tight rectal sphincter. The stool has been sent for occult blood. EXTREMITIES: 1+ edema with no cyanosis or clubbing. PULSES: Carotid, radial femoral, and dorsalis pedis pulses are intact. SKIN: Warm and dry without bruises or rash. HEME/LYMPH: No tender or swollen lymph nodes in the axilla, inguinal, or cervical area. NEUROLOGICAL: Cranial nerves II through XII intact. Deep tendon reflexes symmetric. Moves all extremities. LABORATORY DATA: Hemoglobin is 11.4, I checked 2 months ago, it was 14; white count 11.0; platelet count 217,000. Her comprehensive metabolic profile shows a low sodium of 129, CO2 of 14, chloride 99, BUN 124, creatinine 1.53, and glucose 166. Liver function tests normal. Troponin 0.074. BNP 149. IMAGING DATA: Chest x-ray; no cardiomegaly, CHF, or infiltrate. EKG; atrial fibrillation, controlled ventricular response with left ventricular hypertrophy with repolarization abnormality, reviewed by me. ADMITTING DIAGNOSES: 1. Found down. 2. Hypotension. 3. Acute renal failure. 4. Gastrointestinal bleeding. 5. Atrial fibrillation with controlled ventricular response. 6. Chronic diastolic heart failure. 7. Dementia. 8. Abnormal troponin. PLAN: 1. IV fluids. 2. Protonix IV. 3. Hold routine medicines including Lasix, etc. 4. Serial H and H q.6 hours, transfuse for hemoglobin less than 7. Cardiology consult. The patient will need to be placed in IMCU because of her elderly status of her atrial fib, hypotension, diastolic heart failure, and acute renal failure. Job ID: [id number]
[2018-07-25 16:50] LABS: Troponin I 0.117 ng/mL (< 0.028)
[2018-07-25] MEDS: Pantoprazole 40 MG VIAL IVP SCH (16:58)
[2018-07-25] MEDS: Sodium Chloride 0.9% 1,000 ML IV SCH (16:59)
[2018-07-25 17:07] VITALS: BMI 31.1
--- NOTE | 2018-07-25 17:23 | PDOC.EVN ---
Event Note - Event Note Event Note: stool heme pos, confirms suspicion of GI bleed. will need GI when stable for endoscopy
[2018-07-25 18:13] LABS: #Lymphocytes 1.6 thou/uL (1.20-3.40); #Monocytes 0.5 thou/uL (0.11-0.59); #Neutrophils 7.4 thou/uL (1.40-6.50); %Basophils 0.3 % (0.0-1.0); %Eosinophils 0.4 % (0.0-10.0); %Monocytes 4.9 % (0.0-10.0); %Neutrophils 77.4 % (42.0-75.0); Mean Corpuscular HGB CONC 34.3 g/dL (32.0-36.0); Mean Corpuscular Hemoglobin 30.3 pg (27.0-31.0); Mean Corpuscular Volume 88.5 fL (78.0-98.0); Mean Platelet Volume 9.9 fL (7.4-10.4); Platelet Count 168 thou/uL (130-400); RBC Distribution Width 12.4 % (11.5-14.5); Red Blood Cell (RBC) Count 3.28 mill/uL (4.20-5.40); White Blood Cell (WBC) Count 9.6 thou/uL (4.8-10.8)
[2018-07-25 18:40] LABS: Troponin I 0.146 ng/mL (< 0.028)
[2018-07-25 18:56] LABS: Lactic Acid 1.8 mmol/L (0.5-2.2)
[2018-07-25] MEDS: Simvastatin 20 MG TAB PO SCH (20:41)
[2018-07-26 00:03] LABS: #Lymphocytes 1.8 thou/uL (1.20-3.40); #Monocytes 0.7 thou/uL (0.11-0.59); #Neutrophils 9.4 thou/uL (1.40-6.50); %Basophils 0.1 % (0.0-1.0); %Eosinophils 0.3 % (0.0-10.0); %Lymphocytes 15.2 % (21.0-51.0); %Monocytes 5.9 % (0.0-10.0); %Neutrophils 78.4 % (42.0-75.0); Hemoglobin 9.8 g/dL (12.0-16.0); Mean Corpuscular HGB CONC 33.2 g/dL (32.0-36.0); Mean Corpuscular Hemoglobin 30.1 pg (27.0-31.0); Mean Corpuscular Volume 90.6 fL (78.0-98.0); Platelet Count 166 thou/uL (130-400); RBC Distribution Width 12.5 % (11.5-14.5); Red Blood Cell (RBC) Count 3.25 mill/uL (4.20-5.40)
--- NOTE | 2018-07-26 00:34 | CON ---
DATE OF CONSULTATION: 07/25/2018 CONSULTING PHYSICIAN: Dr. Terrazas. REASON FOR CONSULTATION: Acute kidney injury with elevated BUN. REASON FOR ADMISSION: Altered mentation. HISTORY OF PRESENT ILLNESS: An 88-year-old female with history of atrial fibrillation, CHF, dementia, hypertension, came to the hospital with above complaint and found to have elevated BUN. Nephrology is consulted. No chest pain or palpitation. No fever or chills. No skin rash. PAST MEDICAL HISTORY: Positive for atrial fibrillation, diastolic heart failure , dementia, hypertension, hyperlipidemia, pulmonary nodule. PAST SURGICAL HISTORY: Cholecystectomy, hysterectomy. HOME MEDICATIONS: 1. Clonazepam. 2. Losartan. 3. Metoprolol. 4. Zocor. 5. Amlodipine. 6. Lasix. 7. Aspirin. ALLERGIES: NO KNOWN DRUG ALLERGIES. SOCIAL HISTORY: No smoking, alcohol, or illicit drug abuse. FAMILY HISTORY: No history of kidney disease. REVIEW OF SYSTEMS: Could not be obtained due to confusion. PHYSICAL EXAMINATION: GENERAL: Reveals an elderly female, in no apparent distress. VITAL SIGNS: Temperature respirations 16, and blood pressure 93/47. HEENT: Atraumatic and normocephalic. Oral mucosa is dry. NECK: Supple. CARDIOVASCULAR: S1 and S2 heard. RESPIRATORY: Clear. GI: Abdomen is soft. MUSCULOSKELETAL: 1+ edema. DERMATOLOGIC: No skin rash. NEUROLOGIC: Confused. LABORATORY DATA: Hemoglobin is 11.5. Potassium 4.3, BUN is 124, creatinine is 1.5. ASSESSMENT AND PLAN: 1. Acute kidney injury, most likely from GI bleed. 2. Azotemia - most likely from GI bleed. 3. Hyponatremia. 4. Metabolic acidosis, rule out abdominal pathology. 5. Anemia, rule out GI bleed. 6. Continue hydration. Check renal ultrasound. Avoid nephrotoxins. We will follow. Thank you for the consult. Job ID: [id number] MTDD
--- NOTE | 2018-07-26 01:42 | CON ---
DATE OF CONSULTATION: HISTORY OF PRESENT ILLNESS: Arlen Jurado is an 88-year-old female who is evaluated by Dr. Sinha in April 2018. She presented complaining of shortness of breath and weakness and was felt to have diastolic heart failure as well as new onset atrial fibrillation. She was on a beta renetta and her rate was controlled. The decision during that hospitalization was to not anticoagulate her due to history of falls and family's concern regarding future falls. She was diuresed and discharged. Also during that admission, she underwent CT angiogram of the chest, which revealed no evidence of pulmonary embolism. She did have an 8 mm pulmonary nodule in the left upper lobe and a small right pleural effusion. Echocardiogram revealed ejection fraction of 50% to 55% with dilated right ventricle with reduced right ventricular systolic function, right ventricular pressure of 35 mm, severely dilated left atrium, markedly enlarged right atrium, mitral annular calcification, mild mitral regurgitation, aortic valve sclerosis, moderate tricuspid regurgitation. She was seen in the office on June 20, 2018, and was relatively asymptomatic at that time. Denies any chest discomfort. She underwent cardiac PET scan on July 07, 2018, which revealed moderate ischemia of the apex. It was felt best to treat her medically. She now is admitted after the family found her down at home. She thinks that she had fallen after coming back from the bathroom. She may have had a bowel movement prior to that. Also, she had black foul-smelling stool over the last 12 hours and Hemoccult has been performed, which is positive, and she has had a drop in her hemoglobin. She denies any shortness of breath, chest or abdominal pain. PAST MEDICAL HISTORY: New onset atrial fibrillation approximately 2 months ago, and diastolic heart failure, dementia, hypertension, hypercholesterolemia, 8 mm pulmonary nodule, abnormal myocardial perfusion study. MEDICATIONS: 1. Amlodipine 5 mg daily. 2. Aspirin 81 mg daily. 3. Furosemide 20 daily. 4. Lorazepam 1 mg b.i.d. p.r.n. 5. Losartan 100 daily. 6. Metoprolol-XL 100 daily. 7. Simvastatin 20 at bedtime. ALLERGIES: NONE. PAST SURGICAL HISTORY: Hysterectomy and cholecystectomy. SOCIAL HISTORY: She does not smoke or drink. She lives alone, but children live near her. FAMILY HISTORY: Unremarkable. REVIEW OF SYSTEMS: Difficult to obtain with the patient's dementia. PHYSICAL EXAMINATION: VITAL SIGNS: Blood pressure 96/54, pulse of 77, irregularly irregular. HEENT: PERRL. NECK: Supple. CHEST: Clear. CARDIAC: S1 and S2 normal without any S3, S4, or murmurs. ABDOMEN: Normal bowel sounds without tenderness or organomegaly. The abdomen is obese. EXTREMITIES: Revealed no edema. NEUROLOGICAL: The patient is alert, confused at times. LABORATORY DATA: EKG reveals atrial fibrillation with controlled ventricular response, voltage criteria for LVH and lateral ST and T-wave changes. Chest x-ray reveals no acute findings. She does have atherosclerotic calcification of thoracic aorta and mitral annular calcification. Head CT revealed no acute intracranial process. Hemoglobin has dropped from 14.6 in April 2018 to 10.0, hematocrit 29.1, white count 9600, platelets 168. D-dimer 1.62. Sodium 129, potassium 4.3, chloride 99, carbon dioxide 14, BUN 124, creatinine 1.53 (creatinine was 0.94 in April 2018), BUN also was 16 in April 2018. Troponin I 0.146. BNP 149.8. IMPRESSION: 1. Gastrointestinal bleed. She is relatively hypotensive. 2. Acute kidney injury, probably due to volume depletion. She has significantly elevated BUN, which may be due to volume depletion as well as gastrointestinal bleeding. 3. Atrial fibrillation, onset in April 2018. 4. Hypertension. 5. Chronic diastolic heart failure. 6. Abnormal myocardial perfusion study with finding of apical ischemia earlier this month. PLAN: Aspirin will be discontinued. She has been placed on Protonix. With hypotension, metoprolol has been held and her heart rate will need to be watched closely. She certainly may require transfusion in the morning. GI will be consulted. We will follow the patient with you. Job ID: [id number]
[2018-07-26 05:19] LABS: #Lymphocytes 1.3 thou/uL (1.20-3.40); #Monocytes 0.4 thou/uL (0.11-0.59); #Neutrophils 7.6 thou/uL (1.40-6.50); %Basophils 0.4 % (0.0-1.0); %Eosinophils 0.5 % (0.0-10.0); %Lymphocytes 13.5 % (21.0-51.0); %Monocytes 4.5 % (0.0-10.0); %Neutrophils 81.2 % (42.0-75.0); Hemoglobin 9.1 g/dL (12.0-16.0); Mean Corpuscular HGB CONC 33.8 g/dL (32.0-36.0); Mean Corpuscular Volume 88.9 fL (78.0-98.0); Mean Platelet Volume 10.4 fL (7.4-10.4); Platelet Count 153 thou/uL (130-400); RBC Distribution Width 12.5 % (11.5-14.5); Red Blood Cell (RBC) Count 3.02 mill/uL (4.20-5.40); White Blood Cell (WBC) Count 9.4 thou/uL (4.8-10.8)
[2018-07-26 05:32] LABS: Anion Gap 12 mmol/L (10-20); BUN (Urea Nitrogen) 110 mg/dL (9.8-20.1); Calc. Creatinine Clearance 43 mL/min (70-130); Calcium 8.7 mg/dL (7.8-10.44); Carbon Dioxide 17 mmol/L (23-31); Chloride 106 mmol/L (98-107); Estimated GFR-MDRD 47; Glucose 87 mg/dL (83-110); Sodium 131 mmol/L (136-145)
[2018-07-26] MEDS: Sodium Chloride 0.9% 1,000 ML IV SCH ×2 (06:26→18:11)
[2018-07-26] MEDS ORDERED: Losartan 25 MG TAB PO SCH (09:00)
[2018-07-26] MEDS: Pantoprazole 40 MG VIAL IVP SCH ×2 (09:22→21:07)
[2018-07-26] MEDS ORDERED: Pantoprazole 80 MG in Sodium Chloride 0.9% 100 ML IVP SCH (10:45)
--- NOTE | 2018-07-26 11:49 | PRG ---
DATE OF SERVICE: SUBJECTIVE: The patient is seen and examined at the bedside. Her both daughters are present in the room during my visit. She seems to be doing quite well, but we have problems with her blood pressure which is running between 80s and 100 systolic. OBJECTIVE: VITAL SIGNS: Blood pressure is 97/50, pulse is 74, respiratory rate is 20, O2 saturation is 100%. HEENT: Head is atraumatic and normocephalic. Eyes are PERRLA. Sclerae are nonicteric. Conjunctivae palish. Oral mucosa is moist. LUNGS: Clear. HEART: S1 and S2 normal. No S3. No S4. ABDOMEN: Soft, nontender. Bowel sounds present. EXTREMITIES: No clubbing, cyanosis, or edema. NEUROLOGIC: She follows my commands. She moves her all 4 extremities. There is no any motor or sensory deficits. LABORATORY DATA: White count of 9.4, hemoglobin 9.1, hematocrit 26.8, platelet count is 153,000. Chemistry showed sodium of 131, potassium 4.0, chloride 106, CO2 of 17, creatinine 12, BUN 110, creatinine 1.11, glucose 87, and calcium 8.7. IMPRESSION: 1. Loss of consciousness, most likely secondary to acute GI bleeding. 2. Acute gastrointestinal bleeding with evidence of melena. 3. Recent onset of atrial fibrillation. 4. Chronic diastolic heart failure. 5. Recently positive PET scan for some ischemia of her heart. 6. Hypotension. 7. Acute renal failure. PLAN: Plan is to give her 1 unit of packed red blood cells. Start her on Protonix drip. Stop Protonix IV push. Dr. Carl was called to see the patient. Job ID: [id number]
[2018-07-26] MEDS ORDERED: PROPOFOL 200 MG/20 ML VIAL ONE (13:51)
[2018-07-26] MEDS ORDERED: ePHEDrine 50 MG/ML VIAL ONE (13:51)
[2018-07-26] MEDS ORDERED: Ketamine 50 MG/ML (10ML VIAL) ONE (13:57)
--- NOTE | 2018-07-26 15:13 | CON ---
DATE OF CONSULTATION: 07/26/2018 REASON FOR CONSULTATION: [facility] care. HISTORY OF PRESENT ILLNESS: Ms. Jurado is an 88-year-old female who apparently came into the hospital yesterday after she had been found down at home by family. She does not really have any memory for what was going on. She is not sure how she got here. According to history and physical, she had been having some black, foul-smelling stool for the 12 hours prior to admission. She is now awake, alert, pleasant, in no distress. Has no acute complaints. PAST MEDICAL HISTORY: 1. Atrial fibrillation. 2. Diastolic heart dysfunction. 3. Dementia. 4. Hypertension. 5. Hyperlipidemia. 6. Pulmonary nodule. PAST SURGICAL HISTORY: Cholecystectomy and hysterectomy. ALLERGIES: NONE. MEDICATIONS: Prior to admission; 1. Clonazepam. 2. Losartan. 3. Metoprolol. 4. Zocor. 5. Amiodarone. 6. Lasix. 7. Aspirin. SOCIAL HISTORY: Lives at home. Has family check in on her. Does not smoke. Does not consume alcohol. FAMILY MEDICAL HISTORY: Unremarkable. REVIEW OF SYSTEMS: A 12-point review of systems was negative. PHYSICAL EXAMINATION: VITAL SIGNS: Temperature 97.1, pulse 81, blood pressure 104/60, and O2 saturation 100%. GENERAL: She is awake and alert, and in no acute distress. HEENT: Unremarkable except for pale oral mucous membranes. NECK: No adenopathy. No JVD. LUNGS: Clear anteriorly. CARDIAC: S1, S2. Regular. No audible murmur. ABDOMEN: Soft, nontender to palpation. EXTREMITIES: No clubbing, cyanosis, or edema. NEUROLOGIC: Fully intact throughout. LABORATORY DATA: White blood cell count 9.4, hematocrit 26.8, and platelet count 153. Sodium 131, potassium 4, chloride 106, CO2 of 17, BUN 110, creatinine 1.1, and glucose 87. ASSESSMENT: 1. Constellation of symptoms and physical exam findings along with laboratory findings indicate probable gastrointestinal bleed. 2. Cardiopulmonary status is stable. RECOMMENDATIONS: 1. Withhold any anticoagulation, aspirin. 2. We would consult GI . We will discuss with Dr. Terrazas. Job ID: [id number]
--- NOTE | 2018-07-26 20:09 | CON ---
DATE OF CONSULTATION: 07/26/2018 REASON FOR CONSULT: Melena. HISTORY OF PRESENT ILLNESS: Ms. Jurado is a pleasant 88-year-old female. She was brought to our emergency room by her family for melenic stool, which occurred the day before admission which was yesterday. She had a presyncopal episode at home, did not quite pass out. The patient does not really recall the details. Both daughters and the patient say this is the first time this has happened, they ultimately brought her into the hospital. She had one black stool yesterday while she was here as well, but has had no more. The patient is alert and oriented. Family notes she has not been eating well for the past few weeks, only remember the episode that resolved during the hospitalization. The family notes that she actually had been found down at home. PAST MEDICAL HISTORY: New onset atrial fibrillation about 2 months ago with diagnosis of diastolic heart failure at that time, mild dementia, hypertension, dyslipidemia, and pulmonary nodule. PAST SURGICAL HISTORY: Cholecystectomy and hysterectomy. MEDICATIONS: 1. Losartan. 2. Clonazepam. 3. Metoprolol. 4. Zocor. 5. Amlodipine. 6. Lasix. 7. Aspirin 325 mg daily. Present medications in the hospital: 1. Tylenol. 2. Zofran. 3. Protonix drip. 4. Zocor. 5. Normal saline at 75 an hour. SOCIAL HISTORY: The patient lives alone, but lives close to her children and one of them stays in the reach of eye. She is . She does not smoke or drink. FAMILY HISTORY: Noncontributory. REVIEW OF SYSTEMS: The patient denies any dysphagia, odynophagia, hematochezia, or hematemesis. PHYSICAL EXAMINATION: GENERAL: The patient is resting comfortably in bed. She is alert and oriented to person, place, and time. She is pale and small. VITAL SIGNS: Temperature is 97.3. She has been afebrile since admission. Blood pressure 102/54. It has been as low as 94/48. NECK: Supple without any lymphadenopathy. LUNGS: Clear. HEART: Regular rate and rhythm without clicks or murmurs. ABDOMEN: Soft, nontender. No rebound or guarding. EXTREMITIES: No clubbing, cyanosis, or edema. LABORATORY STUDIES: Hemoglobin was 14.6 on 05/24/2018, it was 11.4 on admission, 10 yesterday evening and 9.8 this morning, presently at 5. Her hemoglobin is 9.1 with a white count 9.4 and platelets 153. Sodium 131, potassium 4.2, chloride 106, bicarb 17, BUN 110, creatinine 1.1, admission BUN was 124. ASSESSMENT: 1. Gastrointestinal hemorrhage, likely upper based on the elevated BUN. 2. Significant heart failure with a previous CT angio of the chest showing contrast refluxing the intrahepatic IVC and hepatic veins with an enlarged heart at that time as well. This would be suggestive of pretty significant right-sided heart failure. RECOMMENDATIONS: 1. IV Protonix. 2. EGD. 3. Avoid NSAIDs and anticoagulation. Risks, benefits, and possible complications of endoscopy including perforation, reaction to medication, and aspiration were discussed with the patient's family and they were understood and wished to proceed. Job ID: [id number]
--- NOTE | 2018-07-26 21:04 | OP ---
DATE OF PROCEDURE: 07/26/2018 PREPROCEDURE DIAGNOSES: History of melena, suggestive of upper gastrointestinal bleed. POSTPROCEDURE DIAGNOSES: 1. Normal esophagus. 2. Mild gastritis throughout the stomach with erythema and edema. 3. Antral ulcer, white based, at the 3 o'clock position of the pyloric channel just in the prepyloric antrum. This was biopsied. There was no stigmata of recent bleeding. 4. Ulcer, duodenal bulb, posterior, white based, no stigmata of recent bleeding. RECOMMENDATIONS: 1. Change Protonix to IV q.12 hours and is tolerating diet with no bleeding. No change to p.o. 2. Avoid NSAIDs. 3. Await biopsies. ANESTHESIA: TIVA. PROCEDURE IN DETAIL: The patient was informed of the risks, benefits, and possible complications of endoscopy including perforation, bleeding, reaction to medication and aspiration, informed consent was obtained. The patient was brought to the endoscopy suite, where she was sedated in a gradual fashion. Once she was comfortable, a bite block was placed . The endoscope was advanced to the esophagus, stomach, and the second and third portions of the duodenum, and slowly removed, the esophagus was normal. The stomach erythema and nodularity. There was a white based ulcer in the antrum which was biopsied, this was sent to Pathology. There was a white based ulcer in the duodenal bulb, posterior wall, this was not biopsied. There was no active bleeding seen. The duodenum to the third portion was normal. The scope was brought back into the stomach and retroflexed. There were no abnormalities there. The scope was removed, the patient tolerated the procedure well no complications. Job ID: [id number]
[2018-07-26] MEDS: Simvastatin 20 MG TAB PO SCH (21:05)
[2018-07-27 05:01] LABS: Anion Gap 10 mmol/L (10-20); BUN (Urea Nitrogen) 53 mg/dL (9.8-20.1); Calc. Creatinine Clearance 66 mL/min (70-130); Calcium 8.5 mg/dL (7.8-10.44); Carbon Dioxide 17 mmol/L (23-31); Chloride 112 mmol/L (98-107); Estimated GFR-MDRD 77; Glucose 88 mg/dL (83-110); Potassium 3.7 mmol/L (3.5-5.1); Sodium 135 mmol/L (136-145)
[2018-07-27 05:11] LABS: Band 1 % (5-11); Eosinophils 1 % (0-10); Hemoglobin 9.8 g/dL (12.0-16.0); Lymphocytes 21 % (21-51); MDiff Complete? YES; Mean Corpuscular HGB CONC 33.3 g/dL (32.0-36.0); Mean Corpuscular Hemoglobin 30.4 pg (27.0-31.0); Mean Corpuscular Volume 91.4 fL (78.0-98.0); Mean Platelet Volume 10.4 fL (7.4-10.4); Monocytes 4 % (0-10); Neutrophil 73 % (42-75); Platelet Count 120 thou/uL (130-400); RBC Distribution Width 12.7 % (11.5-14.5); Red Blood Cell (RBC) Count 3.22 mill/uL (4.20-5.40); White Blood Cell (WBC) Count 5.9 thou/uL (4.8-10.8)
[2018-07-27] MEDS: Sodium Chloride 0.9% 1,000 ML IV SCH ×2 (05:26→20:30)
[2018-07-27] MEDS: Lorazepam 1 MG TAB PO PRN (08:56)
[2018-07-27] MEDS: Pantoprazole 40 MG VIAL IVP SCH (09:01)
--- NOTE | 2018-07-27 09:32 | PDOC.PN ---
- Subjective Encounter Start Date: 07/27/18 Encounter Start Time: 09:30 Ms. Jurado was seen today in follow-up of GI bleed, and syncope related to this. She says she feels fine. She walked some yesterday. She denies abdominal pain no dizziness or weakness. - Objective Resuscitation Status - Order Detail: 07/25/18 15:22 Resuscitation Status Routine Resuscitation Status: DNAR: NO Resuscitation Discussed with: family, Edna SAUL Reviewed: Yes Vital Signs & Weight: Vital Signs (12 hours) Temp Pulse Ox 07/27/18 08:00 100 07/27/18 07:23 96.5 F L 07/27/18 03:00 97.5 F L 07/26/18 23:00 97.1 F L Weight Weight 165 lb Most Recent Monitor Data Heart Rate from ECG 82 NIBP 126/76 NIBP BP-Mean 92 Respiration from ECG 18 SpO2 100 I&O: 07/26/18 07/27/18 07/28/18 06:59 06:59 06:59 Intake Total 944 2529 Output Total 1300 1300 Balance -356 1229 Result Diagrams: 07/27/18 04:08 07/27/18 04:08 Phys Exam - Physical Examination HEENT: PERRLA Respiratory: no wheezing, no rales, no rhonchi, clear to auscultation bilateral Cardiovascular: RRR, no significant murmur, no rub Gastrointestinal: soft, non-tender, no distention, positive bowel sounds Musculoskeletal: no edema, pulses present Neurological: non-focal Dx/Plan (1) Gastric ulcer Code(s): K25.9 - GASTRIC ULCER, UNSP ACUTE OR CHRONIC, W/O HEMOR OR PERF Status: Acute (2) Duodenal ulcer Status: Acute (3) Anemia due to blood loss, acute Code(s): D62 - ACUTE POSTHEMORRHAGIC ANEMIA Status: Acute (4) Atrial fibrillation Code(s): I48.91 - UNSPECIFIED ATRIAL FIBRILLATION Status: Acute Comment: rate controlled on betablocker, new onset, plan for Aspirin only due to falls (5) Hypertension Code(s): I10 - ESSENTIAL (PRIMARY) HYPERTENSION Status: Chronic - Plan * Gastric and Duodenal Ulcers- there was no stigmata of recent bleed- continue Protonix * Continue to monitor his H&H * AFIB- her heart rate is controlled- continue Metoprolol, aspirin is on hold * Will have PT/OT evaluate the patient - she may benefit from Home health and PT at discharge.
--- NOTE | 2018-07-27 09:36 | PRG ---
DATE OF SERVICE: 07/27/2018 SUBJECTIVE: The patient underwent endoscopy yesterday and was found to have some small ulcers in her stomach and duodenum as well as some gastritis. She feels well now, has no acute complaints except she wants her anxiety medicine back. OBJECTIVE: VITAL SIGNS: Temperature 96.5, pulse 83, blood pressure 126/76, and O2 saturation 100%. HEENT: Unremarkable. NECK: No JVD. CHEST: Clear. CARDIAC: S1 and S2. Regular. ABDOMEN: Soft. EXTREMITIES: No edema. LABORATORY DATA: White blood cell count 5.9, hematocrit 29.5, and platelet count 120. Sodium 135, potassium 3.7, BUN 53, creatinine 0.7, and glucose 88. ASSESSMENT: 1. Gastrointestinal bleeding. 2. Anemia due to blood loss. 3. Hypertension. 4. Ectopy on EKG, which may be secondary to withholding her beta-renetta. PLAN: 1. Resume beta-renetta. 2. Transfer to telemetry. Keep on electronic device monitor 24 more hours. 3. Continue to monitor hemoglobin. Job ID: [id number]
--- NOTE | 2018-07-27 11:38 | PRG ---
DATE OF SERVICE: 07/27/2018 SUBJECTIVE: Patient was seen and examined at bedside and overnight events noted. Patient denies any shortness of breath or chest pain or palpitation. No history of nausea or vomiting or diarrhea or fever or chills or cramps. OBJECTIVE: GENERAL: This is an elderly female, in no apparent distress. VITAL SIGNS: Temperature 96.5. Pulse 67. Respiratory rate 20. Blood pressure 114/69. HEENT: Atraumatic, normocephalic. Oral mucosa is moist NECK: Supple. CARDIOVASCULAR: S1, S2 heard. Rate and rhythm regular. RESPIRATORY: Clear to auscultation. GASTROINTESTINAL: Abdomen is soft. MUSCULOSKELETAL: No tenderness. No edema. DERMATOLOGIC: No skin rash. NEUROLOGIC: Alert and awake and oriented X3. No focal neurologic deficits. Moving all the extremities. PSYCHIATRIC: Mood and affect normal. LABORATORY DATA: Potassium 3.7, BUN is 53, creatinine is 0.7. ASSESSMENT AND PLAN: 1. Acute kidney injury, much better. 2. Azotemia, getting better, most likely from gastrointestinal bleed. 3. Hyponatremia. 4. Metabolic acidosis. 5. Anemia. Monitor hemoglobin, rule out GI bleed. I will sign off. Please call back with any questions. Job ID: [id number]
--- NOTE | 2018-07-27 12:26 | PRG ---
DATE OF SERVICE: 07/26/2018 SUBJECTIVE: Patient was seen and examined at bedside and overnight events noted. Patient denies any shortness of breath or chest pain or palpitation. No history of nausea or vomiting or diarrhea or fever or chills or cramps. OBJECTIVE: GENERAL: This is an elderly female, in no apparent distress. VITAL SIGNS: Temperature 97.1. Pulse 75. Respiratory rate 11. Blood pressure 108/55. HEENT: Atraumatic, normocephalic. Oral mucosa is moist NECK: Supple. CARDIOVASCULAR: S1, S2 heard. Rate and rhythm regular. RESPIRATORY: Clear to auscultation. GASTROINTESTINAL: Abdomen is soft. MUSCULOSKELETAL: No tenderness. No edema. DERMATOLOGIC: No skin rash. NEUROLOGIC: Alert and awake and oriented X3. No focal neurologic deficits. Moving all the extremities. PSYCHIATRIC: Mood and affect normal. LABORATORY DATA: Hemoglobin 9.1. Potassium is 4.0, BUN is 110, creatinine is 1.1. ASSESSMENT AND PLAN: 1. Acute kidney injury, better with hydration. 2. Azotemia, most likely from gastrointestinal bleed. 3. Hyponatremia. 4. Metabolic acidosis. 5. Anemia. Follow up with GI. 6. We will continue to follow. Continue hydration. Avoid nephrotoxins. Job ID: [id number]
--- NOTE | 2018-07-27 17:25 | PDOC.CTH ---
Cardiology Progress Note - Subjective She is doing better. No bleeding. Hgb stable. - Objective Vital Signs Temp Pulse Pulse BP BP Pulse Ox 07/27/18 15:32 97.0 F L 07/27/18 12:10 70 68 135/73 137/71 07/27/18 11:51 97.0 F L 07/27/18 08:00 100 07/27/18 07:23 96.5 F L Weight 165 lb 07/26/18 07/27/18 07/28/18 06:59 06:59 06:59 Intake Total 944 2529 Output Total 1300 1300 Balance -356 1229 - Physical Examination General/Neuro: alert & oriented x3, NAD Neck: no JVD present Lungs: CTA, unlabored respirations Heart: other: (Irreg irreg) Abdomen: NT/ND Extremities: other: (no edema) - Telemetry Telemetry Rhythm: Afib HR 70's. - Labs Result Diagrams: 07/27/18 04:08 07/27/18 04:08 Troponin/CKMB CK-MB (CK-2) 3.6 ng/mL (0-6.6) 07/25/18 13:26 Troponin I 0.146 ng/mL (< 0.028) H 07/25/18 18:07 - Assessment/Plan 1. Acute GI bleed. 2. Peptic ulcer disease. 3. Chronic afib. 4. Frequent falls. 5. HTN. 6. Abnormal MPI with apical ischemia earlier this year. PLAN: - Continue medical therapy. - No anticoagulation secondary to frequent falls and GI bleeding. - No new recs. - Home any time from cardiac perspective.
--- NOTE | 2018-07-27 18:44 | PRG ---
DATE OF SERVICE: 07/27/2018 SUBJECTIVE: Ms. Jurado is doing well. She has had no further bleeding. She is tolerating full liquid diet. She is being advanced to a regular diet this afternoon. OBJECTIVE: VITAL SIGNS: Temperature is 97.0 and blood pressure is 137/71. ABDOMEN: Soft and nontender. NEUROLOGIC: She is alert and oriented. LUNGS: Clear. LABORATORY DATA: White count is 5.9, hemoglobin is 9.8, and platelet count is 120. Sodium 135, potassium 3.7, BUN and creatinine 53 and 0.72. ASSESSMENT: Upper gastrointestinal bleed from ulcers. These were bland with low risk for rebleeding. Biopsies showed no evidence of Helicobacter pylori or malignancy. RECOMMENDATIONS: 1. Advance diet as tolerated. 2. Change to p.o. PPI. 3. Avoid NSAIDs. Job ID: [id number]
[2018-07-27] MEDS: Simvastatin 20 MG TAB PO SCH (20:55)
[2018-07-28] MEDS: Sodium Chloride 0.9% 1,000 ML IV SCH (03:33)
[2018-07-28] MEDS: Lorazepam 1 MG TAB PO PRN (09:06)
--- NOTE | 2018-07-28 09:34 | PRG ---
DATE OF SERVICE: 07/28/2018 SUBJECTIVE: The patient is doing well. Has no complaints. OBJECTIVE: VITAL SIGNS: Temperature is 97.7, pulse 113, blood pressure , O2 saturations 100%. HEENT: Unremarkable. NECK: No JVD. CHEST: Clear. CARDIAC: S1, S2. Regular. ABDOMEN: Soft. EXTREMITIES: No edema. LABORATORY DATA: No labs were done today. ASSESSMENT: 1. Status post gastrointestinal bleeding. 2. Hypertension. PLAN: She is to resume her beta renetta. Continues to be hemodynamically stable and ready for discharge or mcc placement. No further Pulmonary issues and we will sign off. Job ID: [id number]
--- NOTE | 2018-07-28 16:10 | PRG ---
DATE OF SERVICE: 07/28/2018 SUBJECTIVE: Ms. Jurado is doing well. She is eating regular diet. She has been switched to p.o. Protonix. OBJECTIVE: VITAL SIGNS: Temperature 97.5, blood pressure 105/57, 92/51. ABDOMEN: Soft and nontender. LABORATORY DATA: Hemoglobin stable at 9.8, white count 5.8, platelet count 120,000 as of yesterday. No labs today. ASSESSMENT: 1. Gastric duodenal ulcer. Biopsy negative for malignancy or Helicobacter pylori. 2. Gastrointestinal bleed, resolved. No stigmata of ongoing bleeding. RECOMMENDATIONS: Protonix 40 mg p.o. daily. Avoid NSAIDs. She will continue the PPI for 8 weeks. Follow up in the office in 1 month. Repeat EGD in 6 weeks to document healing well ulcer. We will go and sign off now. If further GI assistance is needed, please do not hesitate to reconsult. Job ID: [id number]
--- NOTE | 2018-07-28 16:45 | PDOC.PN ---
- Subjective Encounter Start Date: 07/28/18 Encounter Start Time: 09:15 Ms. Landin was seen today in follow-up of acute blood loss anemia. She does not have any complaints this morning. She denies any abdominal pain. She has been up with PT, and walked without difficulty. - Objective Resuscitation Status - Order Detail: 07/27/18 18:12 Resuscitation Status Routine Resuscitation Status: PRTL: Chem only Discussed with: Daughter DORYS Reviewed: Yes Vital Signs & Weight: Vital Signs (12 hours) Temp Pulse Pulse BP BP Pulse Ox Pulse Ox 07/28/18 15:19 97.5 F L 07/28/18 11:31 97.6 F 07/28/18 11:01 69 64 91/52 L 111/63 100 07/28/18 08:27 97.4 F L 07/28/18 07:58 100 Pulse Ox 07/28/18 15:19 07/28/18 11:31 07/28/18 11:01 100 07/28/18 08:27 07/28/18 07:58 Weight Weight 165 lb Most Recent Monitor Data Heart Rate from ECG 66 NIBP 116/65 NIBP BP-Mean 82 Respiration from ECG 16 SpO2 100 I&O: 07/27/18 07/28/18 07/29/18 06:59 06:59 06:59 Intake Total 2529 2510 Output Total 1300 1910 Balance 1229 600 Result Diagrams: 07/27/18 04:08 07/27/18 04:08 Phys Exam - Physical Examination HEENT: PERRLA Respiratory: no wheezing, no rales, no rhonchi, clear to auscultation bilateral Cardiovascular: RRR, no significant murmur, no rub Gastrointestinal: soft, non-tender, no distention, positive bowel sounds Musculoskeletal: no edema, pulses present Dx/Plan (1) Gastric ulcer Code(s): K25.9 - GASTRIC ULCER, UNSP ACUTE OR CHRONIC, W/O HEMOR OR PERF Status: Acute (2) Duodenal ulcer Status: Acute (3) Anemia due to blood loss, acute Code(s): D62 - ACUTE POSTHEMORRHAGIC ANEMIA Status: Acute (4) Atrial fibrillation Code(s): I48.91 - UNSPECIFIED ATRIAL FIBRILLATION Status: Acute Comment: rate controlled on betablocker, new onset, plan for Aspirin only due to falls (5) Hypertension Code(s): I10 - ESSENTIAL (PRIMARY) HYPERTENSION Status: Chronic - Plan * Gastric and Duodenal Ulcer- continue Protonix. Her H&H has been stable * AFIB- her heart rate is stable. No anticoagulation due to GI bleed and frequent falls * HTN- blood pressure is stable * Home tomorrow if clinically stable.
--- NOTE | 2018-07-28 17:07 | PDOC.CTH ---
Cardiology Progress Note - Subjective No new issues. - Objective Vital Signs Temp Pulse Pulse BP BP Pulse Ox Pulse Ox 07/28/18 15:19 97.5 F L 07/28/18 11:31 97.6 F 07/28/18 11:01 69 64 91/52 L 111/63 100 07/28/18 08:27 97.4 F L 07/28/18 07:58 100 Pulse Ox 07/28/18 15:19 07/28/18 11:31 07/28/18 11:01 100 07/28/18 08:27 07/28/18 07:58 Weight 165 lb 07/27/18 07/28/18 07/29/18 06:59 06:59 06:59 Intake Total 2529 2510 Output Total 1300 1910 Balance 1229 600 - Physical Examination General/Neuro: alert & oriented x3, NAD Neck: no JVD present Lungs: CTA, unlabored respirations Heart: other: (Irreg irreg) Abdomen: NT/ND Extremities: other: (no edema) - Telemetry Telemetry Rhythm: Afib HR 70's. - Labs Result Diagrams: 07/27/18 04:08 07/27/18 04:08 Troponin/CKMB CK-MB (CK-2) 3.6 ng/mL (0-6.6) 07/25/18 13:26 Troponin I 0.146 ng/mL (< 0.028) H 07/25/18 18:07 - Assessment/Plan 1. Acute GI bleed. 2. Peptic ulcer disease. 3. Chronic afib. 4. Frequent falls. 5. HTN. 6. Abnormal MPI with apical ischemia earlier this year. PLAN: - Continue medical therapy. - No anticoagulation secondary to frequent falls and GI bleeding. - No new recs. - Home any time from cardiac perspective. - Will sign off, please call for any questions.
[2018-07-28] MEDS: Simvastatin 20 MG TAB PO SCH (20:02)
[2018-07-29 05:27] LABS: Anion Gap 12 mmol/L (10-20); BUN (Urea Nitrogen) 15 mg/dL (9.8-20.1); Calc. Creatinine Clearance 64 mL/min (70-130); Calcium 8.7 mg/dL (7.8-10.44); Carbon Dioxide 18 mmol/L (23-31); Chloride 107 mmol/L (98-107); Estimated GFR-MDRD 73; Glucose 103 mg/dL (83-110); Potassium 4.8 mmol/L (3.5-5.1); Sodium 132 mmol/L (136-145)
[2018-07-29 07:53] LABS: Hemoglobin 9.8 g/dL (12.0-16.0); Platelet Count 119 thou/uL (130-400)
[2018-07-29 07:56] LABS: #Eosinphils 0.1 thou/uL (0.0-0.7); #Lymphocytes 1.4 thou/uL (1.20-3.40); #Monocytes 0.4 thou/uL (0.11-0.59); #Neutrophils 4.9 thou/uL (1.40-6.50); %Basophils 0.5 % (0.0-1.0); %Eosinophils 1.8 % (0.0-10.0); %Lymphocytes 20.7 % (21.0-51.0); %Monocytes 5.6 % (0.0-10.0); %Neutrophils 71.4 % (42.0-75.0); Hemoglobin 9.7 g/dL (12.0-16.0); Mean Corpuscular Hemoglobin 30.7 pg (27.0-31.0); Mean Corpuscular Volume 90.3 fL (78.0-98.0); Mean Platelet Volume 10.8 fL (7.4-10.4); Platelet Count 124 thou/uL (130-400); RBC Distribution Width 13.1 % (11.5-14.5); Red Blood Cell (RBC) Count 3.17 mill/uL (4.20-5.40); White Blood Cell (WBC) Count 6.8 thou/uL (4.8-10.8)
[2018-07-29] MEDS: Lorazepam 1 MG TAB PO PRN (09:03)
--- NOTE | 2018-07-29 10:12 | PDOC.PN ---
- Subjective Encounter Start Date: 07/29/18 Encounter Start Time: 10:10 Ms. Landin was seen today in follow-up of GI Bleed. She does not have any complaints. - Objective Resuscitation Status - Order Detail: 07/27/18 18:12 Resuscitation Status Routine Resuscitation Status: PRTL: Chem only Discussed with: Daughter DORYS Reviewed: Yes Vital Signs & Weight: Vital Signs (12 hours) Temp Pulse Resp BP Pulse Ox 07/29/18 08:00 97.7 F 68 18 122/64 100 07/29/18 03:33 97.9 F 70 17 130/58 L 99 Weight Weight 165 lb Most Recent Monitor Data Heart Rate from ECG 64 NIBP 119/62 NIBP BP-Mean 81 Respiration from ECG 21 SpO2 96 I&O: 07/28/18 07/29/18 07/30/18 06:59 06:59 06:59 Intake Total 2510 1320 Output Total 1910 Balance 600 1320 Result Diagrams: 07/29/18 07:33 07/29/18 04:34 Phys Exam - Physical Examination HEENT: PERRLA Respiratory: no wheezing, no rales, no rhonchi, clear to auscultation bilateral Cardiovascular: RRR, no significant murmur, no rub Gastrointestinal: soft, non-tender, no distention, positive bowel sounds Musculoskeletal: no edema, pulses present Dx/Plan (1) Gastric ulcer Code(s): K25.9 - GASTRIC ULCER, UNSP ACUTE OR CHRONIC, W/O HEMOR OR PERF Status: Acute (2) Duodenal ulcer Status: Acute (3) Anemia due to blood loss, acute Code(s): D62 - ACUTE POSTHEMORRHAGIC ANEMIA Status: Acute (4) Atrial fibrillation Code(s): I48.91 - UNSPECIFIED ATRIAL FIBRILLATION Status: Acute Comment: rate controlled on betablocker, new onset, plan for Aspirin only due to falls (5) Hypertension Code(s): I10 - ESSENTIAL (PRIMARY) HYPERTENSION Status: Chronic - Plan * Gastric and Duodenal Ulcer- continue Protonix * Her H&H has remained stable * No anticoagulation * Stable for discharge home.
[2018-07-29 11:58] VITALS: BP 127/58; TEMP 97.3
--- NOTE | 2018-07-29 19:47 | DIS ---
DATE OF ADMISSION: 07/25/2018 DATE OF DISCHARGE: 07/29/2018 PRIMARY CARE PHYSICIAN: Dr. Audrey Jiménez. DISCHARGE DISPOSITION: Home. PRIMARY DISCHARGE DIAGNOSES: 1. Duodenal and gastric ulcers. 2. Acute blood loss anemia. 3. Presyncope secondary to #2. 4. Hypertension. 5. Atrial fibrillation. 6. History of diastolic heart failure. DISCHARGE MEDICATIONS: 1. Protonix 40 mg daily. 2. Please note she was taken off aspirin due to GI bleed and frequent falls. 3. Continue Lasix 20 mg daily. 4. Simvastatin 20 mg at bedtime. 5. Metoprolol-XL 100 mg daily. 6. Losartan 100 mg daily. 7. Lorazepam 1 mg twice a day as needed. 8. Amlodipine 5 mg daily. PROCEDURES DONE DURING THE ADMISSION: The patient had a CT scan of the brain showing no evidence of any acute intracranial process. The patient had an upper endoscopy in which there was evidence of a normal esophagus. There was mild gastritis throughout the stomach. There was an antral ulcer as well as a duodenal ulcer. Both had white base and there was no stigmata of recent bleeding. CODE STATUS: Chemical code only. HOSPITAL COURSE: Ms. Jurado is a pleasant 88-year-old female, who presented to the emergency room after she was found down at home. She was found to have an acute blood loss anemia. She was transfused a unit of blood with improvement in her symptoms. She underwent upper endoscopy and was found to have a gastric as well as duodenal ulcer. She was started initially on a Protonix drip and then transitioned over to oral Protonix. She had been on aspirin for stroke prevention, and this will need to be discontinued due to the risk for GI bleed and she is being discharged home today on 07/29/2018, to have close outpatient followup. Job ID: [id number]
== END 2018-07-29 15:00 | disposition home or self-care (01) | DRG 378 ==
LOC: ERS 13:13 → IMCU/EMU 16:43 → 2NO 07-28 20:39
PROVIDERS: ADMIT Internal Medicine; ATTEND Internal Medicine
PROC: 0DB78ZX Excision of Stomach, Pylorus, Via Natural or Artificial Opening Endoscopic, Diagnostic (ICD-10-PCS; principal; 2018-07-26)
DX: K26.0 Acute duodenal ulcer with hemorrhage (principal); I50.32 Chronic diastolic (congestive) heart failure; N17.9 Acute kidney failure, unspecified; E87.1 Hypo-osmolality and hyponatremia; D62 Acute posthemorrhagic anemia; E87.2 Acidosis; K29.71 Gastritis, unspecified, with bleeding; K25.0 Acute gastric ulcer with hemorrhage; K92.1 Melena; I48.2 Chronic atrial fibrillation; F03.90 Unspecified dementia, unspecified severity, without behavioral disturbance, psychotic disturbance, mood disturbance, and anxiety; I11.0 Hypertensive heart disease with heart failure; E78.5 Hyperlipidemia, unspecified; Z66 Do not resuscitate; R29.6 Repeated falls; I95.9 Hypotension, unspecified; Z79.899 Other long term (current) drug therapy; Z90.49 Acquired absence of other specified parts of digestive tract; Z79.82 Long term (current) use of aspirin; Z90.710 Acquired absence of both cervix and uterus
CPT/HCPCS: 36415; 36416; 36430; 70450; 71045; 80048; 80053; 82274; 82553; 83605; 83880; 84484; 85007; 85025; 85027; 86850; 86900; 86901; 87040; 87149; 88305; 88312; 93005; 96360; 96361; C9113; J2704; J3490; P9016

== ENCOUNTER 2018-10-05 16:00 | Inpatient (IN) | payer MEDICAID, MEDICARE ==
[2018-10-05 17:48] LABS: Bacteria/HPF 4+ HPF (None Seen); Bilirubin Negative (Negative); Blood, Urine Negative (Negative); Clarity Turbid (Clear); Glucose, Urine (Dipstick) Normal (Negative); Leukocyte 500 Leu/uL (Negative); Nitrite 1+ (Negative); Protein, Urine (Dipstick) 10 mg/dL (Neg-Trace); Squamous Epithelial 0-3 HPF (0-3); Urobilinogen Normal mg/dL (Less than 2); WBC/HPF Greater than 50 HPF (0-3)
[2018-10-05 17:56] LABS: Medtox Reader # READER 4
[2018-10-05 17:57] LABS: Amphetamine Not Detected (NotDetected); Barbiturates Screen Not Detected (NotDetected); Benzodiazepine Screen Not Detected (NotDetected); Cocaine Metabolite Screen Not Detected (NotDetected); Medtox Control Line Valid? VALID (VALID); Methadone Not Detected (NotDetected); Methamphetamine Not Detected (NotDetected); Opiate Screen Not Detected (NotDetected); Oxycodone Screen Not Detected (NotDetected); Phencyclidine (PCP) Not Detected (NotDetected); THC/Cannabinoid Screen Not Detected (NotDetected); Tricyclic Screen Not Detected (NotDetected)
[2018-10-05 17:58] LABS: #Eosinphils 0.1 thou/uL (0.0-0.7); #Lymphocytes 1.2 thou/uL (1.20-3.40); #Monocytes 0.5 thou/uL (0.11-0.59); #Neutrophils 6.1 thou/uL (1.40-6.50); %Basophils 0.6 % (0.0-1.0); %Eosinophils 0.9 % (0.0-10.0); %Lymphocytes 15.1 % (21.0-51.0); %Monocytes 6.3 % (0.0-10.0); %Neutrophils 77.1 % (42.0-75.0); Mean Corpuscular HGB CONC 32.6 g/dL (32.0-36.0); Mean Corpuscular Hemoglobin 28.4 pg (27.0-31.0); Mean Platelet Volume 9.2 fL (7.4-10.4); Platelet Count 229 thou/uL (130-400); RBC Distribution Width 15.6 % (11.5-14.5); Red Blood Cell (RBC) Count 4.94 mill/uL (4.20-5.40)
[2018-10-05 18:20] LABS: ALT (SGPT) 16 U/L (8-55); AST (SGOT) 20 U/L (5-34); Albumin 4.4 g/dL (3.4-4.8); Alkaline Phosphatase 93 U/L (40-150); Anion Gap 14 mmol/L (10-20); BUN (Urea Nitrogen) 14 mg/dL (9.8-20.1); Bilirubin, Total 0.9 mg/dL (0.2-1.2); Calc. Creatinine Clearance 0 mL/min (70-130); Carbon Dioxide 23 mmol/L (23-31); Chloride 92 mmol/L (98-107); Estimated GFR-MDRD 56; Globulin 3.2 g/dL (2.4-3.5); Glucose 102 mg/dL (83-110); Potassium 3.9 mmol/L (3.5-5.1); Protein, Total 7.6 g/dL (6.0-8.3); Sodium 125 mmol/L (136-145)
[2018-10-05] MEDS ORDERED: cefTRIAXone\\ROCEPHIN 2 GM VIAL ONE (18:37)
--- NOTE | 2018-10-05 18:41 | PDOC.FPRHP ---
- History of Present Illness Chief Complaint: AMS w/ hallucinations History of Present Illness: Ms. Jurado is a 88yoF who presents to the ED for visual hallucinations that began this morning. She recently changed from lorazepam to lexapro for her anxiety and believed this might be the cause. Today around noon Ms. Jurado walked down the street to her daughter's house complaining that someone was in her hous and had locked herself in a room. Upon investigation, there was no one in the home. She was also refusing to eat, stating that someone had poisoned it. They decided to bring her to the ED. She denies any other symptoms. (09/19 was taking 1/2 of the 0.5mg lorazepam at bedtime for 1 week (last Tuesday) and then was instructed to discontinue the medication. She has been off lorazepam for approximately 1 week now. She has been taking the lexapro since Tuesday) ED Course: 1L NS and 2g rocephin - Allergies/Adverse Reactions Allergies Allergy/AdvReac Type Severity Reaction Status Date / Time No Known Drug Allergies Allergy Verified 10/05/18 21:36 - Home Medications Medication Instructions Recorded Confirmed Type Losartan Potassium 100 mg PO DAILY 05/21/18 10/05/18 History Metoprolol Succinate [Toprol XL] 100 mg PO DAILY 05/21/18 10/05/18 History Simvastatin [Zocor] 20 mg PO HS 05/21/18 10/05/18 History Pantoprazole [Protonix] 40 mg PO DAILY #30 tab 07/29/18 10/05/18 Rx Amlodipine [Norvasc] 5 mg PO DAILY 10/05/18 10/05/18 History Aspirin [Ecotrin] 81 mg PO DAILY 10/05/18 10/05/18 History Escitalopram Oxalate 10 mg PO DAILY 10/05/18 10/05/18 History Ferrous Sulfate [Iron] 325 mg PO DAILY 10/05/18 10/05/18 History Furosemide 20 mg PO DAILY 10/05/18 10/05/18 History - History PMHx: CHF Atrial fibrillation HLD HTN Anxiety CKD? PSHx: Cholecystectomy Hysterectomy FHx: Non-contributory Social: Denies tobacco, alcohol, or illicit drug use. - Review of Systems General: denies: fever/chills, weight/appetite/sleep changes, night sweats Eyes: denies: eye pain, vision changes ENT: denies: nasal congestion, rhinorrhea Respiratory: denies: cough, congestion, shortness of breath Cardiovascular: denies: chest pain, palpitation, edema, paroxysmal nocturnal dyspnea, orthopnea Gastrointestinal: reports: other (decreased appetite). denies: nausea, vomiting , diarrhea, constipation Genitourinary: denies: incontinence, dysuria, polyuria Skin: denies: rashes, lesions, jaundice Musculoskeletal: denies: pain, tenderness, stiffness Neurological: denies: numbness, syncope, seizure Psychological: reports: other (hallucinations). denies: anxiety, depression - Vital signs BP: 145/75 HR: 66 RR: 18 Tmax: 98.4 Pox: 97%% on RA Wt: 75kg - Physical Exam Constitutional: NAD, awake, alert and oriented -Constitutional: A&O x1 HEENT: normocephalic and atraumatic, PERRLA, EOMI, grossly normal vision, grossly normal hearing, MMM Neck: supple, FROM Chest: no-tender to palpation Heart: RRR, normal S1/S2, no murmurs/rubs/gallops, pulses present, other (2+ pitting edema BLE) Lungs: CTAB, no respiratory distress, good air movement, no rales/rhonchi, no wheezing Abdomen: soft, non-tender, bowel sounds present Musculoskeletal: normal structure, normal tone Neurological: no focal deficit, normal sensation Skin: no rash/lesions, good turgor, capillary refill <2 seconds Heme/Lymphatic: no unusual bruising or bleeding, no purpura -Psychiatric: demented, altered. FMR H&P: Results - Labs Result Diagrams: 10/05/18 17:45 10/05/18 17:45 Lab results: WBC 8.0 thou/uL (4.8-10.8) 10/05/18 17:45 Hgb 14.0 g/dL (12.0-16.0) 10/05/18 17:45 Hct 43.0 % (36.0-47.0) 10/05/18 17:45 MCV 87.0 fL (78.0-98.0) 10/05/18 17:45 Plt Count 229 thou/uL (130-400) 10/05/18 17:45 Neutrophils % 77.1 % (42.0-75.0) H 10/05/18 17:45 Sodium 125 mmol/L (136-145) L 10/05/18 17:45 Potassium 3.9 mmol/L (3.5-5.1) 10/05/18 17:45 Chloride 92 mmol/L (98-107) L 10/05/18 17:45 Carbon Dioxide 23 mmol/L (23-31) 10/05/18 17:45 BUN 14 mg/dL (9.8-20.1) 10/05/18 17:45 Creatinine 0.94 mg/dL (0.6-1.1) 10/05/18 17:45 Glucose 102 mg/dL (83-110) 10/05/18 17:45 Calcium 10.0 mg/dL (7.8-10.44) 10/05/18 17:45 Total Bilirubin 0.9 mg/dL (0.2-1.2) 10/05/18 17:45 AST 20 U/L (5-34) 10/05/18 17:45 ALT 16 U/L (8-55) 10/05/18 17:45 Alkaline Phosphatase 93 U/L (40-150) 10/05/18 17:45 Serum Total Protein 7.6 g/dL (6.0-8.3) 10/05/18 17:45 Albumin 4.4 g/dL (3.4-4.8) 10/05/18 17:45 Urine Ketones 10 mg/dL (Negative) A 10/05/18 17:28 Urine Blood Negative (Negative) 10/05/18 17:28 Urine Nitrite 1+ (Negative) A 10/05/18 17:28 Ur Leukocyte Esterase 500 Douglas/uL (Negative) A 10/05/18 17:28 Urine RBC 4-6 HPF (0-3) A 10/05/18 17:28 Urine WBC Greater than 50 HPF (0-3) A 10/05/18 17:28 Ur Squamous Epith Cells 0-3 HPF (0-3) 10/05/18 17:28 Urine Bacteria 4+ HPF (None Seen) A 10/05/18 17:28 - EKG Interpretation EKG: Not Done FMR H&P: A/P - Plan 1. 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 * Was given rocephin in the ED, will continue until urine sensitivities are back. Urine culture ordered. * Lexapro held for today * In elderly patient with dementia, polypharmacy is on the differential. Consider following up with primary care for management of medication list. 2. Hyponatremia * likely 2/2 to HFpEF w/ fluid overload. Will hold IV fluids and recheck BMP in the am. 3. HTN * Will restart home medications * Amlodipine, Losartan and Metoprolol. * ASA 4. Anxiety * Holding Lexapro today. Will reevaluate in the AM. 5. HLD * Home meds, simvastatin 6. Dementia * Currently A&O x 1. Will continue to monitor. 7. HFpEF * Will restart home medications, lasix 8. Gerd * pantoprazole 40mg Disposition/LOS: Dispo: obs Code: NO COMPRESSIONS, chemical and intubate only VTE: Lovenox FMR H&P: Upper Level - Pertinent history 88 yo f with dementia presents with a one day history of hallucinations. This has happened before when she had a urinary tract infection. She also recently weaned of lorazepam and started lexapro ~2 weeks prior. She had visual hallucinations this morning and was paranoid that someone put something in her food today and so she wouldn't eat it. She has had decreased po intake for about one week however. - Pertinent findings Vitals: HR: 74, BP: 175/79 T:98.4 RR: 16 O2sat: 98%RA PE: a&ox1 RRR CTAB no abdominal tenderness, soft, nondistended 2+ pitting edema in lower extremities b/l Labs: wbc normal UA: 4+ bacteria, +Nitrites and LE, +ketones, no blood Na 125 - Plan Date/Time: 10/05/18 1839 A/P: 88 yo f admitted for acute encephalopathy on dementia2/2 UTI vs polypharmacy. #Acute encephalopathy with psychosis- -suspect etiology to be infectious as sx occurred acutely vs med changes and polypharmacy. Per family acute psychosis has occurred with prior UTIs. Most recent medication changes were two weeks ago when they started Lexapro and last week she was weaned off lorazepam. She is on several medications and with her underlying dementia she may benefit from dc'ing several medications including the simvastatin. -Will treat the UTI and wait on the urine cx results and sensitivities. #Hyponatremia- -pt has HFpEF, has 2+ pitting edema -Will fluid restrict overnight and recheck bmp in the am #UTI- -see above #Dementia -a&ox1 #Anxiety- -on lexapro for 2 weeks, recent change; will hold overnight. #HFpEF- -restart home meds #HTN- -restart home meds #HLD- -consider dc of simvastatin Heather Londono, PGY-3,
[2018-10-05] MEDS ORDERED: Ondansetron ODT 4 MG TAB PO PRN (21:21)
[2018-10-05] MEDS ORDERED: Senokot S 8.6-50 MG TAB PO PRN (21:21)
[2018-10-05] MEDS ORDERED: Ondansetron ODT 4 MG TAB SL PRN (21:29)
[2018-10-05] MEDS ORDERED: Ondansetron PF 4 MG/2 ML Vial IVP PRN (21:29)
[2018-10-05] MEDS ORDERED: Sodium Chloride 0.9% 1,000 ML IV SCH (21:30)
[2018-10-05 22:29] VITALS: BMI 30.9
[2018-10-05] MEDS ORDERED: Atorvastatin Calcium 10 MG TAB PO SCH (22:30)
[2018-10-05] MEDS ORDERED: Losartan 25 MG TAB PO SCH (22:30)
[2018-10-05] MEDS ORDERED: Amlodipine 5 MG TAB PO SCH (22:30)
[2018-10-05] MEDS: Aspirin 81 mg Enteric Coated Tablet PO SCH (22:42)
[2018-10-05] MEDS: Furosemide 20 MG TAB PO SCH (22:42)
[2018-10-05] MEDS: Amlodipine 5 MG TAB PO SCH (22:42)
--- NOTE | 2018-10-06 06:33 | PDOC.FM ---
- Subjective Subjective: Patient notes that she continues to have a fear of returning home for fear of the roundhouse firer/fireman being out to get her. She feels well overall. Denied any pain. Denies fever/chills, dysuria. - Objective Vital Signs & Weight: Vital Signs (12 hours) Temp Pulse Resp BP Pulse Ox 10/06/18 05:20 99.4 F 64 18 166/74 H 97 10/05/18 23:05 74 10/05/18 23:00 98.1 F 66 18 145/75 H 97 10/05/18 21:14 98.4 F 74 16 175/79 H 98 Weight Weight 74.298 kg I&O: 10/04/18 10/05/18 10/06/18 06:59 06:59 06:59 Intake Total 420 Output Total 1400 Balance -980 Result Diagrams: 10/05/18 17:45 10/06/18 07:52 Phys Exam - Physical Examination Constitutional: NAD Respiratory: no wheezing, clear to auscultation bilateral Cardiovascular: RRR, no significant murmur Gastrointestinal: soft, non-tender Musculoskeletal: no edema Neurological: non-focal Lymphatic: no nodes Psychiatric: A&O x 3 Skin: cap refill <2 seconds Dx/Plan (1) Hyponatremia Code(s): E87.1 - HYPO-OSMOLALITY AND HYPONATREMIA Status: Acute (2) Delusion Code(s): F22 - DELUSIONAL DISORDERS Status: Acute (3) Anxiety Code(s): F41.9 - ANXIETY DISORDER, UNSPECIFIED Status: Chronic (4) Hypertension Code(s): I10 - ESSENTIAL (PRIMARY) HYPERTENSION Status: Chronic - Plan Plan: Acute encephalopathy with psychosis 2/2 UTI vs hyponatremia * Recently started Lexapro for anxiety * Urine showed significant UTI, 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 * Was given rocephin in the ED, will continue until urine sensitivities are back. Urine culture ordered. * Lexapro held for today * In elderly patient with dementia, polypharmacy is on the differential. Consider following up with primary care for management of medication list. Hyponatremia * pt has chronic hyponatremia in low 130s, today improved 125->129 * will recheck on am BMP * pending urine studies * acute worsening could be 2/2 new SSRI use UTI * continue rocephin (10/05) * pending cultures, NGTD HTN * Will restart home medications * Amlodipine, Losartan and Metoprolol. * ASA Anxiety * Holding Lexapro for now HLD * Home meds, simvastatin Dementia * Currently A&O x 3. Will continue to monitor. HFpEF * Will restart home medications, lasix Gerd * pantoprazole 40mg Dispo: Will continue abx for UTI, pending cultures. Recheck Na+ in am for continued improvement. Addendum - Attending - Attending Attestation Date/Time: 10/06/18 1051 I personally evaluated the patient and discussed the management with Dr. Barba I agree with the History, Examination, Assessment and Plan documented above with any addition or exceptions noted below - [place] without complaints but still concerned about returning home. Afebrile VSS. A/P: 1) Delusion/ Hallucination- possibly secondary UTI or hyponatremia or mixed- continue to monitor and reassure patient, 2) Hyponatremia- improving; holding lexapro as this was a recent medication and may have contributed to the hyponatremia; recheck in AM, 3) UTI - continue rocephin; urine culture pending.
[2018-10-06 08:42] LABS: Anion Gap 14 mmol/L (10-20); BUN (Urea Nitrogen) 11 mg/dL (9.8-20.1); Calc. Creatinine Clearance 65 mL/min (70-130); Calcium 9.4 mg/dL (7.8-10.44); Carbon Dioxide 23 mmol/L (23-31); Chloride 96 mmol/L (98-107); Estimated GFR-MDRD 76; Glucose 87 mg/dL (83-110); Potassium 3.5 mmol/L (3.5-5.1); Sodium 129 mmol/L (136-145)
[2018-10-06] MEDS ORDERED: Famotidine 20 MG TAB PO PRN (09:00)
[2018-10-06] MEDS: Furosemide 20 MG TAB PO SCH (09:01)
[2018-10-06] MEDS: Amlodipine 5 MG TAB PO SCH (09:01)
[2018-10-06] MEDS: Aspirin 81 mg Enteric Coated Tablet PO SCH (09:01)
[2018-10-06] MEDS: Losartan 25 MG TAB PO SCH (09:01)
[2018-10-06] MEDS: Ferrous Sulfate 325 MG TAB PO SCH (09:01)
[2018-10-06] MEDS: Acetaminophen 325 MG TAB PO PRN (09:02)
[2018-10-06] MEDS: Enoxaparin Sodium 40 MG/0.4 ML SYRINGE SC SCH (09:04)
[2018-10-06] MEDS: cefTRIAXone\\ROCEPHIN 1 GM in Sodium Chloride 0.9% 100 ML IVPB SCH (21:08)
[2018-10-06] MEDS: Atorvastatin Calcium 10 MG TAB PO SCH (21:10)
[2018-10-06] MEDS ORDERED: Senokot S 8.6-50 MG TAB PO SCH (22:00)
[2018-10-07] MEDS: Acetaminophen 325 MG TAB PO PRN ×2 (01:06→23:29)
[2018-10-07 06:17] LABS: Anion Gap 15 mmol/L (10-20); BUN (Urea Nitrogen) 11 mg/dL (9.8-20.1); Calc. Creatinine Clearance 60 mL/min (70-130); Calcium 9.6 mg/dL (7.8-10.44); Carbon Dioxide 20 mmol/L (23-31); Chloride 95 mmol/L (98-107); Estimated GFR-MDRD 69; Glucose 92 mg/dL (83-110); Potassium 3.8 mmol/L (3.5-5.1); Sodium 126 mmol/L (136-145)
--- NOTE | 2018-10-07 06:17 | PDOC.FM ---
- Subjective Subjective: No acute events overnight. Patient feels "good" this morning. She has no pain, no dysuria, no leg swelling. She is AxO x3. She reports her manager of housekeeping/ cleaner and presser was not good and brought little kids and friends over. She did not mention any delusional ideas today, just that her data warehouse developer was not very good. - Objective MAR Reviewed: Yes Vital Signs & Weight: Vital Signs (12 hours) Temp Pulse Resp BP Pulse Ox 10/07/18 04:01 98.8 F 63 16 141/72 H 96 10/06/18 23:26 98.3 F 63 16 144/70 H 98 10/06/18 19:40 98.5 F 63 16 143/70 H 99 Weight Weight 74.298 kg I&O: 10/05/18 10/06/18 10/07/18 06:59 06:59 06:59 Intake Total 420 750 Output Total 1400 850 Balance -980 -100 Result Diagrams: 10/05/18 17:45 10/07/18 05:43 Phys Exam - Physical Examination Constitutional: NAD Respiratory: clear to auscultation bilateral Cardiovascular: RRR, no significant murmur Gastrointestinal: soft, non-tender, no distention, positive bowel sounds Musculoskeletal: pulses present (chronic venous stasis changes) Psychiatric: normal affect (AxO x2, only forgot which year it is. Knows person, place.) Skin: no rash Dx/Plan (1) Acute encephalopathy Code(s): G93.40 - ENCEPHALOPATHY, UNSPECIFIED Status: Acute (2) SIADH (syndrome of inappropriate ADH production) Status: Acute (3) Hypertension Code(s): I10 - ESSENTIAL (PRIMARY) HYPERTENSION Status: Chronic (4) UTI (urinary tract infection) due to Enterococcus Code(s): N39.0 - URINARY TRACT INFECTION, SITE NOT SPECIFIED; B95.2 - ENTEROCOCCUS THE CAUSE OF DISEASES CLASSIFIED ELSEWHERE Status: Acute (5) (HFpEF) heart failure with preserved ejection fraction Code(s): I50.30 - UNSPECIFIED DIASTOLIC (CONGESTIVE) HEART FAILURE Status: Chronic (6) Atrial fibrillation Code(s): I48.91 - UNSPECIFIED ATRIAL FIBRILLATION Status: Chronic - Plan Plan: 88-F who lives at home, presented w/: 1. Acute encephalopathy with psychosis 2/2 UTI vs hyponatremia - Recently started Lexapro for anxiety. Psychosis resolved. - UCx: E. Coli, newberry sensitive. - Will start amoxicillin 875mg BID x 7 days. Rocephin x1 given. - Hold lexapro - F/U w/ PCP for polypharmacy 2. Hyponatremia 2/2 SIADH - Hx of chronic hyponatremia in low 130s. - Acute worsening likely in form of SIADH from SSRI - Uosm = 339, Usodium = 87, Serum osm (calc) = 261. Supports etiology of SIADH. - BMP today w/ sodium of 126. - Fluid restrict to 1.2 L daily. - Consideration of salt tabs if no improvement, however, caution as patient has HFpEF. - BMP this afternoon. 3. UTI - see #1 4. HTN - Continue home meds: Amlodipine, Losartan, Metoprolol, ASA 5. Anxiety - Hold lexapro, consider alternative agent 6. HLD - Home meds, simvastatin 7. Dementia - continue to monitor. Do not advise starting any dementia medications in setting of polypharmacy and low benefit to symptoms. 8. HFpEF - Continuing home medications - Patient on lasix at home: consider stopping if no improvement or giving PRN for fluid overload. 9. Gerd - pantoprazole 40mg PPx: LVX Dispo: Currently Obs. Reassess later today for d/c. Addendum - Attending - Attending Attestation Date/Time: 10/07/18 5269 I personally evaluated the patient and discussed the management with Dr. Doshi. I agree with the History, Examination, Assessment and Plan documented above with any addition or exceptions noted below. Patient overall seems to be improved this morning, she is alert and appropriate in conversation. Has e. coli UTI that she is receiving treatment for, but also suspect polypharmacy and possible SIADH with hyponatremia as offenders of her mental status as well. Continue fluid restriction, continue abx. Consider d/c later today versus tomorrow. Sensitivities have resulted.
[2018-10-07] MEDS: Aspirin 81 mg Enteric Coated Tablet PO SCH (08:09)
[2018-10-07] MEDS: Losartan 25 MG TAB PO SCH (08:09)
[2018-10-07] MEDS: Enoxaparin Sodium 40 MG/0.4 ML SYRINGE SC SCH (08:10)
[2018-10-07] MEDS: Ferrous Sulfate 325 MG TAB PO SCH (08:10)
[2018-10-07] MEDS: Amlodipine 5 MG TAB PO SCH (08:10)
[2018-10-07 14:29] LABS: Anion Gap 16 mmol/L (10-20); BUN (Urea Nitrogen) 13 mg/dL (9.8-20.1); Calc. Creatinine Clearance 46 mL/min (70-130); Calcium 9.9 mg/dL (7.8-10.44); Carbon Dioxide 19 mmol/L (23-31); Chloride 94 mmol/L (98-107); Estimated GFR-MDRD 51; Glucose 121 mg/dL (83-110); Potassium 3.7 mmol/L (3.5-5.1); Sodium 125 mmol/L (136-145)
[2018-10-07] MEDS ORDERED: Amlodipine 5 MG TAB PO SCH (17:00)
[2018-10-07] MEDS: cefTRIAXone\\ROCEPHIN 1 GM in Sodium Chloride 0.9% 100 ML IVPB SCH (20:58)
[2018-10-07] MEDS: Atorvastatin Calcium 10 MG TAB PO SCH (20:58)
--- NOTE | 2018-10-08 05:58 | PDOC.FM ---
- Subjective Subjective: No acute events overnight. No complaints. Patient talked about needing to go to the ER and needing to get a shot. Also, was asking if she could stay in the hospital another day because she does not trust her neighbors at home. - Objective MAR Reviewed: Yes Vital Signs & Weight: Vital Signs (12 hours) Temp Pulse Resp BP BP Pulse Ox 10/08/18 03:51 97.8 F 72 18 123/73 97 10/08/18 00:00 98.1 F 67 18 115/70 98 10/07/18 20:20 98.0 F 60 18 160/76 H 97 10/07/18 20:00 97 Weight Weight 74.298 kg I&O: 10/06/18 10/07/18 10/08/18 06:59 06:59 06:59 Intake Total 420 990 840 Output Total 1400 850 Balance -980 140 840 Result Diagrams: 10/05/18 17:45 10/08/18 05:40 Phys Exam - Physical Examination Constitutional: NAD Respiratory: no wheezing, clear to auscultation bilateral Cardiovascular: RRR, no significant murmur Gastrointestinal: soft, non-tender, positive bowel sounds Musculoskeletal: no edema (Chronic venous stasis changes and distal varicose veins) Psychiatric: normal affect (alert and oriented x2, dementia at baseline) Dx/Plan (1) Acute encephalopathy Code(s): G93.40 - ENCEPHALOPATHY, UNSPECIFIED Status: Acute (2) SIADH (syndrome of inappropriate ADH production) Status: Acute (3) Hypertension Code(s): I10 - ESSENTIAL (PRIMARY) HYPERTENSION Status: Chronic (4) UTI (urinary tract infection) due to Enterococcus Code(s): N39.0 - URINARY TRACT INFECTION, SITE NOT SPECIFIED; B95.2 - ENTEROCOCCUS THE CAUSE OF DISEASES CLASSIFIED ELSEWHERE Status: Acute (5) (HFpEF) heart failure with preserved ejection fraction Code(s): I50.30 - UNSPECIFIED DIASTOLIC (CONGESTIVE) HEART FAILURE Status: Chronic (6) Atrial fibrillation Code(s): I48.91 - UNSPECIFIED ATRIAL FIBRILLATION Status: Chronic - Plan Plan: 88-F who lives at home, presented w/: 1. Acute encephalopathy with psychosis 2/2 UTI vs hyponatremia - Recently started Lexapro for anxiety. Psychosis resolved. She does have dementia at baseline and may have a fixed delusion about her neighbors/cleaning lady. - UCx: E. Coli, newberry sensitive. - Will start amoxicillin 875mg BID to complete a 7 day course of abx. Rocephin x2 given. - Hold lexapro - F/U w/ PCP for polypharmacy 2. Hyponatremia 2/2 SIADH - Hx of chronic hyponatremia in low 130s. - Acute worsening likely in form of SIADH from SSRI - Uosm = 339, Usodium = 87, Serum osm (calc) = 261. Supports etiology of SIADH. - Sodium oscillating between 125 and 129. - Fluid restrict to 1.2 L daily. - Consideration of salt tabs if no improvement, however, caution as patient has HFpEF. 3. UTI - see #1 4. HTN - Continue home meds: Amlodipine, Losartan, Metoprolol, ASA 5. Anxiety - Hold lexapro, consider alternative agent. Will discuss this with family today. 6. HLD - Home meds, atorvastatin 7. Dementia - continue to monitor 8. HFpEF - Continuing home medications - Patient on lasix at home: consider stopping if no improvement or giving PRN for fluid overload. 9. Gerd - pantoprazole 40mg PPx: LVX Dispo: Inpatient. Reassess later today for d/c Addendum - Attending - Attending Attestation Date/Time: 10/08/18 9766 I personally evaluated the patient and discussed the management with Dr. Doshi. I agree with the History, Examination, Assessment and Plan documented above with any addition or exceptions noted below. Patient here for AMS 2/2 UTI and also noted acute on chronic hyponatremia. She has been taken off ARB and sodium is somewhat improved. Mentating well. Will discuss with family this morning but anticipate that patient will be stable for d/c later today to complete outpatient UTI therapy.
[2018-10-08 06:09] LABS: Anion Gap 15 mmol/L (10-20); BUN (Urea Nitrogen) 11 mg/dL (9.8-20.1); Calc. Creatinine Clearance 52 mL/min (70-130); Calcium 9.9 mg/dL (7.8-10.44); Carbon Dioxide 24 mmol/L (23-31); Chloride 94 mmol/L (98-107); Estimated GFR-MDRD 59; Glucose 115 mg/dL (83-110); Potassium 3.7 mmol/L (3.5-5.1); Sodium 129 mmol/L (136-145)
[2018-10-08 08:03] VITALS: BP 158/80; TEMP 98.1
[2018-10-08] MEDS: Ferrous Sulfate 325 MG TAB PO SCH (08:47)
[2018-10-08] MEDS: Aspirin 81 mg Enteric Coated Tablet PO SCH (08:47)
[2018-10-08] MEDS: Enoxaparin Sodium 40 MG/0.4 ML SYRINGE SC SCH (08:47)
[2018-10-08] MEDS ORDERED: Amlodipine 5 MG TAB PO SCH (09:00)
[2018-10-08] MEDS ORDERED: Lorazepam 0.5 MG TAB PO SCH (14:49)
== END 2018-10-08 15:26 | disposition home or self-care (01) | DRG 644 ==
LOC: ERS 16:00 → 2SW 21:07 → OBSVTOIN 21:11 → 2SW 21:11 → T4-B 10-07 20:50
PROVIDERS: ADMIT Family Medicine; ATTEND Family Medicine
DX: E22.2 Syndrome of inappropriate secretion of antidiuretic hormone (principal); N39.0 Urinary tract infection, site not specified; G93.49 Other encephalopathy; I50.32 Chronic diastolic (congestive) heart failure; F41.9 Anxiety disorder, unspecified; I48.91 Unspecified atrial fibrillation; I11.0 Hypertensive heart disease with heart failure; F03.90 Unspecified dementia, unspecified severity, without behavioral disturbance, psychotic disturbance, mood disturbance, and anxiety; K21.9 Gastro-esophageal reflux disease without esophagitis; E78.00 Pure hypercholesterolemia, unspecified; B96.20 Unspecified Escherichia coli [E. coli] as the cause of diseases classified elsewhere; T43.225A Adverse effect of selective serotonin reuptake inhibitors, initial encounter; E78.5 Hyperlipidemia, unspecified; F22 Delusional disorders; Z79.899 Other long term (current) drug therapy; Z79.82 Long term (current) use of aspirin
CPT/HCPCS: 36415; 80048; 80053; 80306; 81003; 81015; 82533; 83935; 84300; 84443; 85025; 87040; 87077; 87086; 87186; 96361; 96365; J0696; J1650; J3490

== ENCOUNTER 2022-02-01 14:39 | Inpatient (IN) | payer MEDICARE, OTHER ==
[2022-02-01 15:47] LABS: #Lymphocytes 0.7 thou/uL (1.20-3.40); #Monocytes 0.4 thou/uL (0.11-0.59); #Neutrophils 3.5 thou/uL (1.40-6.50); %Basophils 0.8 % (0.0-1.0); %Lymphocytes 14.8 % (21.0-51.0); %Monocytes 9.1 % (0.0-10.0); %Neutrophils 74.3 % (42.0-75.0); Hemoglobin 13.9 g/dL (12.0-16.0); Mean Corpuscular HGB CONC 32.2 g/dL (32.0-36.0); Mean Corpuscular Hemoglobin 29.2 pg (27.0-31.0); Mean Corpuscular Volume 90.5 fl (78.0-98.0); RBC Distribution Width 13.2 % (11.5-14.5); Red Blood Cell (RBC) Count 4.77 mill/uL (4.20-5.40); White Blood Cell (WBC) Count 4.7 10x3/uL (4.8-10.8)
[2022-02-01 16:11] LABS: ALT (SGPT) 12 U/L (8-55); AST (SGOT) 23 U/L (5-34); Albumin 3.9 g/dL (3.4-4.8); Alkaline Phosphatase 86 U/L (40-110); Anion Gap 16 mmol/L (10-20); BUN (Urea Nitrogen) 30 mg/dL (9.8-20.1); Bilirubin, Total 1.4 mg/dL (0.2-1.2); Calc. Creatinine Clearance 0 mL/min (70-130); Calcium 9.5 mg/dL (7.8-10.44); Carbon Dioxide 18 mmol/L (23-31); Chloride 102 mmol/L (98-107); Estimated GFR 46; Globulin 3.8 g/dL (2.4-3.5); Glucose 128 mg/dL (83-110); Protein, Total 7.7 g/dL (5.8-8.1); Sodium 131 mmol/L (136-145)
[2022-02-01 16:13] LABS: MDiff Complete? YES; Mean Platelet Volume 10.5 fL (7.4-10.4); Platelet Count 103 10x3/uL (130-400); Platelet Morphology Comment Appears Decreased; Polychromasia SLIGHT = 2-3 cells (100X) (0-2/hpf)
[2022-02-01 19:01] LABS: SARS-CoV-2 NAA Rapid Test Not Detected (NotDetected)
[2022-02-01] MEDS ORDERED: Furosemide 40 MG/4 ML VIAL ONE (19:03)
[2022-02-01] MEDS ORDERED: Nitroglycerin 2% Ointment 1 INCH/1 GM Packet ONE (19:36)
[2022-02-01 20:09] LABS: Troponin I 0.026 ng/mL (< 0.028)
[2022-02-01] MEDS ORDERED: Ondansetron ODT 4 MG TAB PO PRN (20:48)
[2022-02-01] MEDS ORDERED: Calcium Carbonate 500 MG ChewTAB PO PRN (20:48)
[2022-02-01] MEDS ORDERED: Acetaminophen 650 MG Suppository PR PRN (20:48)
[2022-02-01] MEDS ORDERED: Ondansetron PF 4 MG/2 ML Vial IVP PRN (20:48)
[2022-02-01] MEDS ORDERED: Acetaminophen 325 MG TAB PO PRN (20:48)
[2022-02-01] MEDS ORDERED: hydrALAZINE 20 MG/ML VIAL SLOW IVP SCH ×2 (21:15→23:45)
[2022-02-01] MEDS ORDERED: hydrALAZINE 20 MG/ML VIAL ONE (21:50)
[2022-02-01 21:53] LABS: Troponin I 0.025 ng/mL (< 0.028)
[2022-02-01] MEDS: Apixaban 2.5 MG TAB PO SCH (22:05)
[2022-02-01] MEDS: Atorvastatin Calcium 10 MG TAB PO SCH (22:06)
[2022-02-01] MEDS ORDERED: hydrOXYzine Pamoate 25 mg Capsule ONE (23:54)
[2022-02-01] MEDS: hydrOXYzine 25 MG TAB PO SCH (23:58)
[2022-02-02 07:14] LABS: #Monocytes 0.6 thou/uL (0.11-0.59); #Neutrophils 5.3 thou/uL (1.40-6.50); %Basophils 0.4 % (0.0-1.0); %Eosinophils 0.3 % (0.0-10.0); %Lymphocytes 13.7 % (21.0-51.0); %Monocytes 8.9 % (0.0-10.0); %Neutrophils 76.7 % (42.0-75.0); Hemoglobin 15.7 g/dL (12.0-16.0); Mean Corpuscular HGB CONC 32.1 g/dL (32.0-36.0); Mean Corpuscular Hemoglobin 29.1 pg (27.0-31.0); Mean Corpuscular Volume 90.7 fl (78.0-98.0); Platelet Count 121 10x3/uL (130-400); RBC Distribution Width 13.3 % (11.5-14.5); Red Blood Cell (RBC) Count 5.38 mill/uL (4.20-5.40); White Blood Cell (WBC) Count 6.9 10x3/uL (4.8-10.8)
[2022-02-02 07:32] LABS: Anion Gap 16 mmol/L (10-20); BUN (Urea Nitrogen) 28 mg/dL (9.8-20.1); Calc. Creatinine Clearance 47 mL/min (70-130); Calcium 10.3 mg/dL (7.8-10.44); Carbon Dioxide 25 mmol/L (23-31); Chloride 99 mmol/L (98-107); Estimated GFR 49; Glucose 105 mg/dL (83-110); Potassium 4.9 mmol/L (3.5-5.1); Sodium 135 mmol/L (136-145)
[2022-02-02] MEDS: Apixaban 2.5 MG TAB PO SCH ×2 (09:44→21:13)
[2022-02-02] MEDS: Sertraline 25 MG TAB PO SCH (09:44)
[2022-02-02] MEDS: Lisinopril 10 MG TAB PO SCH (09:49)
[2022-02-02 20:49] VITALS: BMI 33.8
[2022-02-02] MEDS: Atorvastatin Calcium 10 MG TAB PO SCH (21:13)
[2022-02-03] MEDS: hydrOXYzine 25 MG TAB PO SCH (01:18)
[2022-02-03 05:20] LABS: #Eosinphils 0.1 thou/uL (0.0-0.7); #Lymphocytes 1.2 thou/uL (1.20-3.40); #Monocytes 0.7 thou/uL (0.11-0.59); #Neutrophils 4.2 thou/uL (1.40-6.50); %Basophils 0.2 % (0.0-1.0); %Eosinophils 1.3 % (0.0-10.0); %Monocytes 11.1 % (0.0-10.0); %Neutrophils 68.4 % (42.0-75.0); Hemoglobin 13.6 g/dL (12.0-16.0); Mean Corpuscular HGB CONC 32.2 g/dL (32.0-36.0); Mean Corpuscular Hemoglobin 28.8 pg (27.0-31.0); Mean Corpuscular Volume 89.6 fl (78.0-98.0); Mean Platelet Volume 10.1 fL (7.4-10.4); Platelet Count 110 10x3/uL (130-400); RBC Distribution Width 13.2 % (11.5-14.5); Red Blood Cell (RBC) Count 4.73 mill/uL (4.20-5.40); White Blood Cell (WBC) Count 6.1 10x3/uL (4.8-10.8)
[2022-02-03 05:24] LABS: Anion Gap 14 mmol/L (10-20); BUN (Urea Nitrogen) 31 mg/dL (9.8-20.1); Calc. Creatinine Clearance 44 mL/min (70-130); Calcium 9.1 mg/dL (7.8-10.44); Carbon Dioxide 23 mmol/L (23-31); Chloride 102 mmol/L (98-107); Estimated GFR 50; Glucose 87 mg/dL (83-110); Potassium 3.5 mmol/L (3.5-5.1); Sodium 135 mmol/L (136-145)
[2022-02-03] MEDS ORDERED: Furosemide 40 MG TAB PO SCH (09:00)
[2022-02-03] MEDS: Lisinopril 10 MG TAB PO SCH (09:31)
[2022-02-03] MEDS: Sertraline 25 MG TAB PO SCH (09:31)
[2022-02-03] MEDS: Apixaban 2.5 MG TAB PO SCH (09:32)
[2022-02-03 16:28] VITALS: BP 159/70; TEMP 97.6
[2022-02-04] MEDS ORDERED: Lisinopril 20 MG TAB PO SCH (09:00)
== END 2022-02-03 18:48 | disposition home or self-care (01) | DRG 291 ==
LOC: ERS 14:39 → ERHOLD 19:19 → 2NO 02-02 19:37
PROVIDERS: ADMIT Student in an Organized Health Care Education/Training Program; ATTEND Student in an Organized Health Care Education/Training Program
DX: I13.0 Hypertensive heart and chronic kidney disease with heart failure and stage 1 through stage 4 chronic kidney disease, or unspecified chronic kidney disease (principal); I50.33 Acute on chronic diastolic (congestive) heart failure; E87.1 Hypo-osmolality and hyponatremia; N18.30 Chronic kidney disease, stage 3 unspecified; I48.91 Unspecified atrial fibrillation; E78.5 Hyperlipidemia, unspecified; F32.A Depression, unspecified; F41.9 Anxiety disorder, unspecified; R00.1 Bradycardia, unspecified; Z79.01 Long term (current) use of anticoagulants; Z79.899 Other long term (current) drug therapy; Z90.49 Acquired absence of other specified parts of digestive tract; Z90.710 Acquired absence of both cervix and uterus
CPT/HCPCS: 36415; 71045; 80048; 80053; 83880; 84484; 85025; 93005; 96374; J0360; J1940; Q0177

== ENCOUNTER 2022-02-17 22:29 | Inpatient (IN) | payer OTHER ==
[2022-02-18 00:19] LABS: #Lymphocytes 0.7 thou/uL (1.20-3.40); #Monocytes 0.6 thou/uL (0.11-0.59); #Neutrophils 11.1 thou/uL (1.40-6.50); %Basophils 0.3 % (0.0-1.0); %Eosinophils 0.4 % (0.0-10.0); %Lymphocytes 5.3 % (21.0-51.0); %Monocytes 4.7 % (0.0-10.0); %Neutrophils 89.3 % (42.0-75.0); Mean Corpuscular HGB CONC 32.3 g/dL (32.0-36.0); Mean Corpuscular Hemoglobin 29.1 pg (27.0-31.0); Mean Corpuscular Volume 90.1 fl (78.0-98.0); Platelet Count 145 10x3/uL (130-400); RBC Distribution Width 13.3 % (11.5-14.5); Red Blood Cell (RBC) Count 5.84 mill/uL (4.20-5.40); White Blood Cell (WBC) Count 12.5 10x3/uL (4.8-10.8)
[2022-02-18 00:25] LABS: Bacteria/HPF 3+ HPF (None Seen); Bilirubin Negative (Negative); Blood, Urine 2+ (Negative); Clarity Extra Turbid (Clear); Glucose, Urine (Dipstick) Normal (Negative); Ketone, Urine Negative (Negative); Leukocyte 500 Leu/uL (Negative); Nitrite 2+ (Negative); Protein, Urine (Dipstick) 200 mg/dL (Neg-Trace); Specific Gravity, Urine 1.009 (1.002-1.036); Squamous Epithelial None Seen HPF (0-3); Urobilinogen Normal mg/dL (Less than 2); WBC/HPF Greater than 50 HPF (0-3); pH, Urine 6.5 (5.0-9.0)
[2022-02-18] MEDS ORDERED: Aspirin Chewable 81 MG TAB ONE (00:41)
[2022-02-18] MEDS ORDERED: Enoxaparin Sodium 80 MG/0.8 ML SYRINGE ONE (00:41)
[2022-02-18] MEDS ORDERED: cefTRIAXone\\ROCEPHIN 2 GM VIAL ONE (00:41)
[2022-02-18 00:43] LABS: ALT (SGPT) 30 U/L (8-55); AST (SGOT) 38 U/L (5-34); Albumin 4.3 g/dL (3.4-4.8); Alkaline Phosphatase 92 U/L (40-110); Anion Gap 19 mmol/L (10-20); BUN (Urea Nitrogen) 35 mg/dL (9.8-20.1); Bilirubin, Total 1.4 mg/dL (0.2-1.2); CK (CPK) 750 U/L (29-168); Calc. Creatinine Clearance 0 mL/min (70-130); Calcium 10.8 mg/dL (7.8-10.44); Carbon Dioxide 21 mmol/L (23-31); Chloride 96 mmol/L (98-107); Estimated GFR 40; Globulin 3.9 g/dL (2.4-3.5); Glucose 140 mg/dL (83-110); Potassium 5.6 mmol/L (3.5-5.1); Protein, Total 8.2 g/dL (5.8-8.1); Sodium 130 mmol/L (136-145)
[2022-02-18 00:53] LABS: CKMB 15.9 ng/mL (0-6.6)
[2022-02-18] MEDS ORDERED: Ondansetron PF 4 MG/2 ML Vial IVP PRN (01:15)
[2022-02-18] MEDS ORDERED: Ondansetron ODT 4 MG TAB SL PRN (01:15)
[2022-02-18] MEDS ORDERED: Acetaminophen 325 MG TAB PO PRN ×2 (01:15→04:45)
[2022-02-18 04:45] LABS: SARS-CoV-2 NAA Rapid Test Not Detected (NotDetected)
[2022-02-18] MEDS ORDERED: Acetaminophen 650 MG Suppository PR PRN (04:45)
[2022-02-18 05:17] LABS: Critical Call Chem Troponin I RESULT DECREASING; Troponin I 1.502 ng/mL (< 0.028)
[2022-02-18 08:15] LABS: Troponin I 1.688 ng/mL (< 0.028)
[2022-02-18] MEDS ORDERED: Calcium Carbonate 500 MG ChewTAB PO PRN (09:51)
[2022-02-18] MEDS ORDERED: Lactated Ringer's 1,000 ML IV SCH (10:00)
[2022-02-18 12:54] LABS: Critical Call Chem Troponin I RESULT DECREASING; Troponin I 1.194 ng/mL (< 0.028)
[2022-02-18 16:22] VITALS: BMI 33.7
[2022-02-18] MEDS ORDERED: FLU VACC QS2022-23(65YR UP)/PF 240 MCG/0.7 ML SYRINGE IM ONE (18:30)
[2022-02-18] MEDS ORDERED: Atorvastatin Calcium 10 MG TAB PO SCH (21:00)
[2022-02-19] MEDS ORDERED: cefTRIAXone\\ROCEPHIN 1 GM in Sodium Chloride 0.9% 100 ML IVPB SCH (01:00)
[2022-02-19 04:03] LABS: #Eosinphils 0.1 thou/uL (0.0-0.7); #Lymphocytes 1.1 thou/uL (1.20-3.40); #Monocytes 0.7 thou/uL (0.11-0.59); #Neutrophils 4.5 thou/uL (1.40-6.50); %Basophils 0.7 % (0.0-1.0); %Lymphocytes 16.9 % (21.0-51.0); %Monocytes 10.2 % (0.0-10.0); %Neutrophils 71.2 % (42.0-75.0); Hemoglobin 14.3 g/dL (12.0-16.0); Mean Corpuscular HGB CONC 32.1 g/dL (32.0-36.0); Mean Corpuscular Hemoglobin 29.1 pg (27.0-31.0); Mean Corpuscular Volume 90.6 fl (78.0-98.0); Mean Platelet Volume 10.5 fL (7.4-10.4); Platelet Count 127 10x3/uL (130-400); RBC Distribution Width 13.2 % (11.5-14.5); White Blood Cell (WBC) Count 6.4 10x3/uL (4.8-10.8)
[2022-02-19 04:23] LABS: Anion Gap 13 mmol/L (10-20); BUN (Urea Nitrogen) 27 mg/dL (9.8-20.1); Calc. Creatinine Clearance 51 mL/min (70-130); Calcium 9.5 mg/dL (7.8-10.44); Carbon Dioxide 21 mmol/L (23-31); Chloride 101 mmol/L (98-107); Estimated GFR 59; Glucose 97 mg/dL (83-110); Potassium 4.2 mmol/L (3.5-5.1); Sodium 131 mmol/L (136-145)
[2022-02-19] MEDS ORDERED: Sertraline 25 MG TAB PO SCH (09:00)
[2022-02-19] MEDS ORDERED: Lisinopril 10 MG TAB PO SCH (09:00)
[2022-02-19] MEDS ORDERED: Furosemide 40 MG TAB PO SCH (09:00)
[2022-02-19] MEDS ORDERED: Apixaban 2.5 MG TAB PO SCH (09:00)
[2022-02-19] MEDS ORDERED: Lisinopril 20 MG TAB PO SCH (10:45)
[2022-02-19 12:21] VITALS: TEMP 97.6
[2022-02-19 12:49] VITALS: BP 148/70
[2022-02-20] MEDS ORDERED: Lisinopril 20 MG TAB PO SCH (09:00)
== END 2022-02-19 16:00 | disposition home or self-care (01) | DRG 871 ==
LOC: ERS 22:29 → ERHOLD 02-18 01:01 → 2NO 02-18 15:51
PROVIDERS: ADMIT Family Medicine; ATTEND Family Medicine
PROC: 3E03329 Introduction of Other Anti-infective into Peripheral Vein, Percutaneous Approach (ICD-10-PCS; principal; 2022-02-18)
PROC: 0T9B70Z Drainage of Bladder with Drainage Device, Via Natural or Artificial Opening (ICD-10-PCS; 2022-02-18)
DX: A41.9 Sepsis, unspecified organism (principal); G93.41 Metabolic encephalopathy; I50.43 Acute on chronic combined systolic (congestive) and diastolic (congestive) heart failure; I21.A1 Myocardial infarction type 2; N39.0 Urinary tract infection, site not specified; N17.9 Acute kidney failure, unspecified; E87.1 Hypo-osmolality and hyponatremia; I13.0 Hypertensive heart and chronic kidney disease with heart failure and stage 1 through stage 4 chronic kidney disease, or unspecified chronic kidney disease; E87.20 Acidosis, unspecified; F41.9 Anxiety disorder, unspecified; E86.0 Dehydration; E03.9 Hypothyroidism, unspecified; I48.0 Paroxysmal atrial fibrillation; I25.10 Atherosclerotic heart disease of native coronary artery without angina pectoris; N18.2 Chronic kidney disease, stage 2 (mild); E78.00 Pure hypercholesterolemia, unspecified; Z20.822 Contact with and (suspected) exposure to COVID-19; F32.A Depression, unspecified; Z79.899 Other long term (current) drug therapy; Z90.49 Acquired absence of other specified parts of digestive tract; Z90.710 Acquired absence of both cervix and uterus; Z98.890 Other specified postprocedural states
CPT/HCPCS: 36415; 70450; 80048; 80053; 81003; 81015; 82550; 82553; 83735; 83880; 84439; 84443; 84484; 85025; 87040; 87077; 87086; 87186; 93005; J0696; J1650; J3490; U0002

== ENCOUNTER 2022-05-03 11:51 | Outpatient (CLI) | payer OTHER | END 2022-05-03 11:52 | disposition home or self-care (01) | LOC: BICRAD 11:51 | PROVIDERS: ATTEND Nurse Practitioner Family | DX: R05.2 Subacute cough (principal) | CPT/HCPCS: 71046 ==